=== PATIENT | female | born 1980 | race Caucasian/White ===

== ENCOUNTER 2018-10-21 12:43 | Inpatient (IN) ==
[2018-10-21] MEDS ORDERED: ZOFRAN IV ONE (12:58)
[2018-10-21] MEDS ORDERED: NS 1,000 ML IV ONE (12:58)
--- NOTE | 2018-10-21 13:23 | PROVIDER DOCUMENTATION ---
This chart was entered by Melina Norman Scribe, acting as scribe for Eunice Walters CRNP. HPI-General Adult - General Chief Complaint: Abdominal Pain Stated Complaint: ABD PAIN,UTI,EAR PAIN Time Seen by Provider: 10/21/18 12:48 Source: patient Allergies/Adverse Reactions: Patient Allergies Allergy/AdvReac Type Severity Reaction Status Date / Time Penicillins Allergy HIVES Verified 10/21/18 13:30 Home Medications: Home Medication List Medication Instructions Recorded Confirmed Last Taken Type Ciprofloxacin HCl [Cipro] 500 mg PO BID 10/21/18 10/21/18 Unknown History Metronidazole 500 mg PO BID 10/21/18 10/21/18 Unknown History Montelukast Sodium [Singulair] 10 mg PO DAILY 10/21/18 10/21/18 Unknown History Omeprazole 40 mg PO DAILY 10/21/18 10/21/18 Unknown History Paroxetine HCl [Paxil] 40 mg PO DAILY 10/21/18 10/21/18 Unknown History Trazodone HCl 150 mg PO HS 10/21/18 10/21/18 Unknown History - History of Present Illness -Gen Adult Nature of Presenting Problems: 38 y/o female presents to ED with low abdominal pain and nausea onset 3 days ago. Pt reports she was seen at urgent care on Friday, treated with cipro and flagyl, and told to take a stool softener. Pt states her last bowel movement was 3 days ago. Pt is alert and oriented. Location of Pain/Injury: reports: abdomen Pain Radiation: reports: no radiation Quality of Pain: reports: aching Severity: reports: moderate Onset/Duration: reports: 3 days ago Timing: reports: still present Context/Activities at Onset: reports: none Modifying Factors: worse with: palpation Associated Symptoms: reports: constipation, nausea, other (low abdominal pain) Similar Symptoms Previously?: No Recently seen or treated by another doctor?: Yes Review of Systems - Adult - REVIEW OF SYSTEMS - ADULT Constitutional: denies: chills, fever Eyes: reports: no symptoms reported Ears, Nose, Mouth & Throat: reports: no symptoms reported Cardiovascular: denies: chest pain, palpitations Respiratory: denies: cough, shortness of breath Gastrointestinal: reports: abdominal pain, constipation. denies: diarrhea, nausea, vomiting Genitourinary: reports: no symptoms reported Musculoskeletal: denies: back pain, joint pain Integumentary: reports: no symptoms reported Neurological: denies: dizziness/vertigo, seizure Psychiatric: reports: no symptoms reported Endocrine: reports: no symptoms reported Hematologic/Lymphatic: reports: no symptoms reported Allergic/Immunologic: reports: no symptoms reported All Other Systems: Reviewed and Negative Past History - Adult - PAST MEDICAL HISTORY-ADULT Review of Records: reports: Old Records Reviewed, Nursing Assessment Review, Medications Reviewed Major Childhood Illnesses: reports: denies history - PRIOR SURGERIES/PROCEDURES Surgical/Procedure History: reports: none - IMMUNIZATION STATUS Childhood Immunizations: See Nurse Assessment Flu Vaccine: See Nurse Assessment - FAMILY HISTORY Family History: reviewed, not pertinent - SOCIAL HISTORY Smoking: non-smoker Substance Use: none/never Alcohol Use Frequency: never Living Situation: family Physical Exam-General - PHYSICAL EXAM-ADULT Initial Vital Signs Reviewed: Yes - CONSTITUTIONAL General Appearance: appears well, alert, no apparent distress, obese - EYES Eyes: PERRL/EOMI, pink conjunctivae - HEAD, EARS, NOSE, MOUTH & THROAT HENMT: normocephalic/atraumatic, moist mucous membranes, normal ENT inspection - NECK Neck: non-tender, full range of motion - RESPIRATORY Respiratory: chest non-tender, lungs clear, normal breath sounds - CARDIOVASCULAR Cardiovascular: normal peripheral pulses, regular rate, rhythm - GASTROINTESTINAL (ABDOMEN) Abdominal Exam: soft, abnormal bowel sounds (hypoactive), tenderness (diffuse). negative: normal bowel sounds - MUSCULOSKELETAL Back Exam: normal inspection, no CVA tenderness, no vertebral tenderness Extremity: normal range of motion, non-tender, normal gait - SKIN Integumentary: normal color, diaphoresis - NEUROLOGIC Neurologic: grossly normal - PSYCHIATRIC Psych/Mental Status: normal mood/affect, normal thought content, normal thought process, oriented x 3 Progress - PLAN OF CARE/RESULTS Progress/Plan/Lab Results: Vital Signs - 8 hr 10/21/18 12:45 Temperature 98.1 F Pulse Rate 109 H Respiratory Rate 20 Blood Pressure 160/93 O2 Sat by Pulse Oximetry 97 Orders Category Date Time Status ED: Urine Bedside ORDERED Care 10/21/18 12:57 Active Saline Loc NOW Care 10/21/18 12:57 Active AMYLASE [CHEM] Stat Lab 10/21/18 12:57 Uncollected CBC WITH ELECTRONIC DIFF [HEME] Stat Lab 10/21/18 12:57 Uncollected CK PROFILE [SP CHEM] Stat Lab 10/21/18 12:57 Uncollected COMPREHENSIVE METABOLIC PANEL [CHEM] Stat Lab 10/21/18 12:57 Uncollected LIPASE [CHEM] Stat Lab 10/21/18 12:57 Uncollected URINALYSIS W/POSS RFLX CULT [URINALYSIS] Stat Lab 10/21/18 12:58 Uncollected 0.9% Sodium Chloride Inj [Ns] 1,000 ml Med 10/21/18 12:58 Active IV 999 mls/hr Ondansetron [Zofran] Med 10/21/18 12:58 Once 4 mg IV NOW ONE Laboratory Tests 10/21/18 10/21/18 10/21/18 12:55 13:00 13:00 WBC 22.17 H RBC 5.03 Hgb 14.5 Hct 42.9 MCV 85.3 MCH 28.8 MCHC 33.8 RDW Std Deviation 13.7 Plt Count 472 H MPV 9.0 Immature Gran % (Auto) 0.4 Neut % (Auto) 84.9 H Lymph % (Auto) 9.7 L Starke % (Auto) 4.7 Eos % (Auto) 0.2 Baso % (Auto) 0.1 Immature Gran # (Auto) 0.08 H Neut # (Auto) 18.84 H Lymph # (Auto) 2.15 Starke # (Auto) 1.04 H Eos # (Auto) 0.04 Baso # (Auto) 0.02 Sodium 137 Potassium 3.6 Chloride 101 Carbon Dioxide 21 L Anion Gap 15 BUN 8 Creatinine 0.7 Estimated GFR/1.73 m2 > 60 BUN/Creatinine Ratio 11 Glucose 126 H Calculated Osmolality 274 Calcium 9.0 Total Bilirubin 0.68 AST 8 L ALT 13 Alkaline Phosphatase 80 Creatine Kinase 49 Total Protein 7.5 Albumin 4.2 Globulin 3.3 Albumin/Globulin Ratio 1.3 Amylase 38 Lipase 14 Plasma Lactate Urine Source CLEAN CATCH Urine Color ORANGE Urine Turbidity HAZY Urine pH 6.0 Ur Specific [place] 1.037 Urine Protein 100 A Ur Glucose (Stick) TRACE Ur Ketones (Stick) 10 A Urine Blood SMALL A Urine Nitrite NEGATIVE Urine Bilirubin NEGATIVE Urobilinogen Dipstick 2 A Urine Leukocytes SMALL A Urine WBC (Auto) 20-40 A Urine RBC (Auto) <10 U Epithel Cells (Auto) <10 Urine Bacteria (Auto) 2+ 10/21/18 13:05 WBC RBC Hgb Hct MCV MCH MCHC RDW Std Deviation Plt Count MPV Immature Gran % (Auto) Neut % (Auto) Lymph % (Auto) Starke % (Auto) Eos % (Auto) Baso % (Auto) Immature Gran # (Auto) Neut # (Auto) Lymph # (Auto) Starke # (Auto) Eos # (Auto) Baso # (Auto) Sodium Potassium Chloride Carbon Dioxide Anion Gap BUN Creatinine Estimated GFR/1.73 m2 BUN/Creatinine Ratio Glucose Calculated Osmolality Calcium Total Bilirubin AST ALT Alkaline Phosphatase Creatine Kinase Total Protein Albumin Globulin Albumin/Globulin Ratio Amylase Lipase Plasma Lactate 1.7 Urine Source Urine Color Urine Turbidity Urine pH Ur Specific [place] Urine Protein Ur Glucose (Stick) Ur Ketones (Stick) Urine Blood Urine Nitrite Urine Bilirubin Urobilinogen Dipstick Urine Leukocytes Urine WBC (Auto) Urine RBC (Auto) U Epithel Cells (Auto) Urine Bacteria (Auto) Dr. Benz paged at [phone]. Discussed results and plan of care with patient. Patient agrees with plan and verbalizes understanding. Result Diagrams: 10/21/18 13:00 10/21/18 13:00 - CT/MRI 1 CT Study: Abdomen ([facility] - [address] [place] [address] [place], [place] [id number] [place] [address] [address] [place] [address] Department of Imaging Patient: NAYLA WALTON Date: 10/21/18#: [id number] : 1980ADM Status: REG [facility]#: [id number] Age/Sex: 38/FRoom/Bed: Loc: ED Ordering Physician: Euncie Walters Family Physician: Belgica Flaherty MD Reason for Procedure: diffuse abd pain/Hx divericulitis Signed EXAM: CT ABD/PELVIS W/IV CONT ONLY 10/21/2018 HISTORY: diffuse abd pain/Hx divericulitis TECHNIQUE: This exam was performed using automated exposure control, adjustment of mA or kV according to patient size, and/or use of iterative reconstruction technique. COMMENT: There is no evidence of acute disease in the visualized portion of the chest. There is apparent hyperplasia of the adrenal glands bilaterally. The spleen is normal in appearance. The liver is unremarkable. The kidneys are without evidence of hydronephrosis or mass. The pancreas is unremarkable. There is no evidence of bowel obstruction or significant adenopathy. The aorta is not distended. Pelvis: The appendix is normal in appearance. There is abnormal stranding around the distal sigmoid colon. There is an apparent foreign body which is of calcific density measuring 4.7 cm in length in this segment of the sigmoid colon and there may be perforation of the posterior wall of the sigmoid colon in this location. There is no discrete abscess identifiable. There is some apparent extraluminal gas on the right lateral aspect. The urinary bladder is not distended. There is a 3.3 cm left ovarian cyst. There is what appears to be a bone island in the proximal left femur. There is no evidence of acute bony abnormality. IMPRESSION: Possible perforation of the distal sigmoid colon by foreign body versus diverticulitis. The findings were discussed with JUHI Valdovinos at 10/21/2018 3:31 PM. Electronically signed by Adebayo Claudio 10/21/2018 3:31 PM 10/21/18 1531 Interpreting Physician: Adebayo Claudio MD Dictated Date/Time: 10/21/18 1524 cc: Eunice Walters; Belgica Flaherty MD), Pelvis Impression: See EMR Report CT Results: See note - CONSULTS/PCP/HOSPITALIST Notification #1 *Consult/PCP/Hospitalist*: Dr. Benz Time Discussed: 16:03 Reason/Comments: Consult Consult Disposition: Admit (Admit to [facility] and he will see her) #2 Consult: Dr. Flaherty Time Discussed: 16:03 Reason/Comments: Admission Consult Disposition: Admit Departure - Departure Date of Disposition Decision: 10/21/18 Time of Disposition Decision: 16:03 DIAGNOSIS: Perforated sigmoid colon Disposition: HOME 01 Certified Medical Emergency: Emergent Condition: Stable Referrals and Follow-Ups: Belgica Flaherty MD [Primary Care Provider] - - Critical Care Note This patient required my direct & personal management of CC.: Yes Total Time (mins): 35 Critical Care Statement: This patient required my direct personal management to treat or rule out processes, the absence of which, could potentiallly result in sudden, clinically significant life or limb threatening deterioration. Attestation - Physician/ ELBERT Attestation Patient care was provided by Advanced Practice Provider:: Yes Advanced Practice Provider:: Eunice Walters Advanced Practice Provider documentation review:: The Mid-level provider documentation, treatment plan and medical decision making was reviewed by the physician who agrees with all treatment and medical decision making by the MLP. The physician spent face to face time with patient:: No Advanced Practice Provider documentation review:: Supervising physician onsite and consulted in the evaluation and care of this patient. The physician did not have a face to face encounter with the patient. This chart was documented by the indicated scribe, (Melina Norman Scribe) and accurately reflects the services I performed and decisions made by me, Eunice Walters CRNP, as attested by the provider's signature.
[2018-10-21 13:26] LABS: URINE SOURCE CLEAN CATCH
[2018-10-21 13:30] LABS: BASO# 0.02 X1000 (0.0-0.2); BASO% 0.1 % (0.0-0.8); EOS# 0.04 X1000 (0.0-0.7); EOS% 0.2 % (0.0-10.0); HEMATOCRIT 42.9 % (37.0-47.0); HEMOGLOBIN 14.5 g/dL (12.0-16.0); IMM GRAN# 0.08 X1000 (0.0-0.04); IMM GRAN% 0.4 % (0.0-0.5); LYMPH# 2.15 X1000 (1.2-3.4); LYMPH% 9.7 % (20.5-51.1); MCH 28.8 PG (27-31); MCHC 33.8 g/dL (33-37); MCV 85.3 FL (81-99); MONO# 1.04 X1000 (0.11-0.59); MONO% 4.7 % (1.7-9.3); NEUT# 18.84 X1000 (1.4-6.5); NEUT% 84.9 % (42.2-75.2); PLT 472 X1000 (130-400); RBC 5.03 XMIL (4.2-5.4); RDW 13.7 % (11.5-14.5); WBC 22.17 X1000 (4.8-10.8)
[2018-10-21 13:34] LABS: BILIRUBIN URINE NEGATIVE (NEGATIVE); BLOOD URINE SMALL (NEGATIVE); COLOR ORANGE; GLUCOSE URINE TRACE mg/dL (NEGATIVE); KETONE URINE 10 mg/dL (NEGATIVE); LEUKOCYTES URINE SMALL (NEGATIVE); NITRITE URINE NEGATIVE (NEGATIVE); PROTEIN URINE 100 mg/dL (NEGATIVE); SP GRAVITY URINE 1.037; TURBIDITY URINE HAZY (CLEAR); UR EPITHELIAL CELLS <10 /HPF (<10); URINE BACTERIA 2+ /HPF; URINE RBC <10 /HPF (<10); URINE WBC 20-40 /HPF (<10); UROBILINOGEN URINE 2 mg/dL (NORMAL)
[2018-10-21 13:53] LABS: AGAP 15; ALB/GLOB RATIO 1.3; ALBUMIN 4.2 g/dL (3.5-5.0); ALKALINE PHOSPHATASE 80 U/L (32-104); BUN 8 mg/dL (8-22); CHLORIDE 101 mmol/L (98-107); COSMO 274; CREATININE 0.7 mg/dL (0.5-0.9); ESTIMATED GFR > 60; GLUCOSE 126 mg/dL (70-104); GOT 8 U/L (10-30); GPT 13 U/L (10-36); POTASSIUM 3.6 mmol/L (3.5-5.1); SODIUM 137 mmol/L (136-145); TCO2 21 mmol/L (25-35); TOTAL BILIRUBIN 0.68 mg/dL (0.20-1.00); TOTAL PROTEIN 7.5 g/dL (6.3-8.3)
[2018-10-21 13:54] LABS: AMYLASE 38 U/L (20-200); CK PROFILE 49 U/L (24-173); LIPASE 14 U/L (13-60)
--- NOTE | 2018-10-21 15:33 | Diag Imaging Result Doc PS360 ---
EXAM: CT ABD/PELVIS W/IV CONT ONLY 10/21/2018 HISTORY: diffuse abd pain/Hx divericulitis TECHNIQUE: This exam was performed using automated exposure control, adjustment of mA or kV according to patient size, and/or use of iterative reconstruction technique. COMMENT: There is no evidence of acute disease in the visualized portion of the chest. There is apparent hyperplasia of the adrenal glands bilaterally. The spleen is normal in appearance. The liver is unremarkable. The kidneys are without evidence of hydronephrosis or mass. The pancreas is unremarkable. There is no evidence of bowel obstruction or significant adenopathy. The aorta is not distended. Pelvis: The appendix is normal in appearance. There is abnormal stranding around the distal sigmoid colon. There is an apparent foreign body which is of calcific density measuring 4.7 cm in length in this segment of the sigmoid colon and there may be perforation of the posterior wall of the sigmoid colon in this location. There is no discrete abscess identifiable. There is some apparent extraluminal gas on the right lateral aspect. The urinary bladder is not distended. There is a 3.3 cm left ovarian cyst. There is what appears to be a bone island in the proximal left femur. There is no evidence of acute bony abnormality. IMPRESSION: Possible perforation of the distal sigmoid colon by foreign body versus diverticulitis. The findings were discussed with JUHI Valdovinos at 10/21/2018 3:31 PM. Electronically signed by Adebayo Claudio 10/21/2018 3:31 PM
[2018-10-21] MEDS ORDERED: ZOSYN 3.375 GM in NS 50 ML IV ONE (15:49)
[2018-10-21] MEDS: ZOFRAN IV PRN (16:29)
[2018-10-21] MEDS ORDERED: NEXIUM IV SCH (19:00)
[2018-10-21] MEDS ORDERED: SODIUM CHLORIDE 0.9% INJ SCH (19:00)
[2018-10-21] MEDS: SODIUM CHLORIDE 0.9% INJ SCH (19:52)
[2018-10-21] MEDS: PROTONIX IV SCH (19:52)
[2018-10-21] MEDS: MAXIPIME 1 GM in NS 50 ML IV SCH (19:52)
[2018-10-21] MEDS: NS 1,000 ML IV SCH (19:59)
--- NOTE | 2018-10-21 20:10 | CONSULTATION ---
DATE OF CONSULTATION: 10/21/2018 HISTORY OF PRESENT ILLNESS: Ms Bertha Trinh is a 38-year-old white female patient of Dr. Eneida Flaherty. This weekend she began experiencing lower abdominal cramping and pain. She has not had a normal bowel movement in 3 days. She did go to urgent care. She was placed on p.o. antibiotics for diverticulitis but presented to the emergency department today because her pain has not improved. Part of her evaluation in our emergency department was a CT scan of her abdomen and pelvis which suggested a foreign body in her sigmoid and also inflammation around the sigmoid colon. There was a question whether this foreign body had perforated or whether she had diverticulitis. There was no abscess. We were asked to evaluate her. PAST MEDICAL HISTORY: She smokes a pack of cigarettes a day. MEDICATIONS: She takes Singulair. She takes trazodone for sleep. She has recently been on Cipro and Flagyl for diverticulitis. ALLERGIES: No known drug allergies. SOCIAL HISTORY: She works at the health department. Her was at the bedside. She lives here in [place]. REVIEW OF SYSTEMS: She has not had a normal bowel movement in 3 days. She has passed some mucus. I think she has had an episode of diverticulitis in the past. She does not recall eating anything with a large bone. Actually, she had hamburgers over the weekend. She has no idea what this foreign body which appears to be calcified could be in her sigmoid colon. Before getting sick, she was very active. PHYSICAL EXAMINATION: General: Ms. Trinh is overweight. She is in no acute distress. HEENT: She had no jaundice, no oral lesions. Satisfactory dentition. Lymphatic: She had no cervical or supraclavicular lymphadenopathy. Cardiovascular: Her heart has a regular rate. Lungs: Clear to auscultation and percussion bilaterally. Abdomen: Soft, but she was tender in the lower abdomen. She has no previous scar. She has no evidence of hernia. She has no costovertebral tenderness. Rectal and vaginal: Exams were not performed. Extremities: She does have palpable peripheral pulses. No peripheral edema. Neurologic: She is alert and oriented x3 and appropriate. LABORATORY DATA: Her white blood cell count is elevated. I reviewed the CT scan with our radiologist, Dr. Claudio. She has inflammation around her mid sigmoid colon. She does have diverticulosis. It appears that she has a foreign body bone density in the sigmoid colon which could have perforated her colon, or she has diverticulitis. She has no abscess and no suggestion of free air. IMPRESSION: Foreign body, sigmoid colon, with surrounding inflammation and possible perforation of sigmoid colon versus diverticulitis. PLAN: She will be admitted and receive IV fluids and hydration and IV antibiotics. We will repeat examine her tomorrow and also get a plain film, and decide whether she needs surgery. I discussed her care with her and her at the bedside in the emergency department. cc: MD Cornell Araujo MD
--- NOTE | 2018-10-21 21:48 | HISTORY AND PHYSICAL ---
CHIEF COMPLAINT: Abdominal pain for 3 days, started on Friday. HISTORY OF PRESENT ILLNESS: She is a 38-year-old, white female, who was initially evaluated at [facility] with abdominal pain, was treating with possible diverticulitis. She was sent home on Cipro, Flagyl, failed to improve, came to the ER. In the ER, CT scan showed some foreign body, 4.7 cm, in the sigmoid colon, and the surrounding area inflamed. It is not clear whether it is related to inflammation around the foreign body or perforated diverticulitis. White cell count is going up. As a result, she was admitted to the hospital, basically sigmoid diverticulitis with foreign body. Dr. Benz was consulted. The patient was started on cefepime, Flagyl, IV fluids, and pain control. Apparently, physical was done in my office, and subsequently, the patient had been referred EGD and colonoscopy, and had done on 08/14/2018. It was done by Dr. Arthur. The findings are as follows: EGD, 2 cm sliding hiatal hernia, a single semi-pedunculated polyp was found in the duodenal bulb, biopsies were done. In the colon, mild colitis in the terminal ileum, 2 small polyps were found in the descending colon. There is a single sessile polyp found in the sigmoid colon 20 cm from the entry site, evidence of diverticulosis, a Schatzki's ring of distal 3rd of esophagus was dilated. As a result, the hospital admission was warranted. PAST MEDICAL HISTORY: Metabolic syndrome, depression with anxiety, hiatal hernia, diverticulosis, duodenal polyp was removed under the care of [facility], tobacco abuse. PAST SURGICAL HISTORY: Tonsillectomy, breast lumpectomy on the right breast in 1993. MEDICATIONS: Prozac 20 mg daily, Prilosec 40 daily, Reglan 10 mg 3 times daily, trazodone 150 daily. ALLERGIES: Penicillin. SOCIAL HISTORY: Working at [employer]. for 18 years with 1 kid. Smoking 1 pack a day for 15 years. No drug abuse, no alcohol abuse. Father of suicide at 67. Mom of brain cancer at 57. 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 1, para 1. control implant by Dr. Holder. REVIEW OF SYSTEMS: HEENT: No headache. No vision problem. No earache. No sore throat. Neck: No goiter. No lymphadenopathy. No bruit. Cardiopulmonary: No chest pain, shortness of breath, PND, orthopnea. Gastrointestinal: Lower abdominal pain, diffuse. No nausea. No bleeding per rectum. Genitourinary: No history of hesitancy, frequency, dysuria. No swelling of legs. No joint pain. Neurologic: No focal symptoms or weakness. PHYSICAL EXAMINATION: Temperature is 98.5 degrees, pulse is 80, blood pressure 130/82, on room air. HEENT: Atraumatic, normocephalic. Pupils equal, reactive to light. NECK: Supple. No lymphadenopathy. No goiter. CHEST: Bilateral air entry. Heart sounds are regular. Belly is soft. Tender diffusely, mostly on the lower abdomen. No guarding, no rigidity. No signs of peritonitis noted. INVESTIGATIONS: White cell count 22, hematocrit 42, platelets 472,000. Sodium 137, potassium 3.6, chloride 101, BUN 8, creatinine 0.7, glucose 126, calcium 9.0. LFTs are normal. Amylase, lipase are normal. Urinalysis, positive for blood. Blood cultures, urine cultures are pending. CT scan of the abdomen and pelvis, sigmoid colitis, possible perforation versus foreign body. ASSESSMENT: A 38-year-old, white female, recently had a colonoscopy by Dr. Arthur on 08/14/2018, with duodenal polyp, hiatal hernia, diverticulosis, and benign polyps removed, with diverticulitis now. Foreign body etiology is not clear. I appreciate Dr. Benz's consult. PLAN: 1. NPO, except ice chips. 2. Intravenous fluids. 3. Control pain with Dilaudid. 4. Continue on Maxipime and metronidazole. IV Zofran for nausea. 5. Gastrointestinal prophylaxis with IV Protonix and Zofran for nausea. 6. Repeat the labs in the morning, follow up on the cultures, and also repeat the flat and upright of the abdomen. We will follow up on the clinical course. cc: Cornell Flaherty MD
[2018-10-21] MEDS: FLAGYL 500 MG/NS 500 MG/100 ML IVPB IV SCH (22:38)
[2018-10-22] MEDS: FLAGYL 500 MG/NS 500 MG/100 ML IVPB IV SCH ×3 (06:10→21:53)
[2018-10-22 07:06] LABS: HEMATOCRIT 38.3 % (37.0-47.0); HEMOGLOBIN 12.5 g/dL (12.0-16.0); MCH 29.1 PG (27-31); MCHC 32.6 g/dL (33-37); MCV 89.1 FL (81-99); MPV 8.7 FL (7.4-10.4); RBC 4.3 XMIL (4.2-5.4); RDW 13.7 % (11.5-14.5); WBC 15.35 X1000 (4.8-10.8)
[2018-10-22 07:09] LABS: AGAP 13; BUN 9 mg/dL (8-22); CALCIUM 8.7 mg/dL (8.8-10.2); CHLORIDE 105 mmol/L (98-107); COSMO 275; CREATININE 0.6 mg/dL (0.5-0.9); ESTIMATED GFR > 60; GLUCOSE 108 mg/dL (70-104); POTASSIUM 3.5 mmol/L (3.5-5.1); SODIUM 138 mmol/L (136-145); TCO2 20 mmol/L (25-35)
[2018-10-22] MEDS: MAXIPIME 1 GM in NS 50 ML IV SCH ×3 (07:39→19:57)
--- NOTE | 2018-10-22 08:58 | Diag Imaging Result Doc PS360 ---
EXAM: ABDOMEN FLAT/UPRIGHT HISTORY: pain TECHNIQUE: Flat and upright, three views COMPARISON: None. FINDINGS: No free air beneath the diaphragm. No bowel obstruction. No organomegaly. Nonspecific mid pelvic calcification. IMPRESSION: No acute abnormality Electronically signed by Placido Cummings 10/22/2018 8:55 AM
[2018-10-22] MEDS: MIRALAX PO SCH ×2 (10:02→21:53)
--- NOTE | 2018-10-22 11:41 | GASTROENTEROLOGY CONSULTATION ---
DATE: 10/22/2018 ATTENDING PHYSICIAN: Dr. Flaherty. PRIMARY PHYSICIAN: Dr. Benz. REASON FOR CONSULTATION: Sigmoid diverticulitis. HISTORY OF PRESENT ILLNESS: Ms. Trinh is a 38-year-old female who was admitted on 10/21/2018 with abdominal pain starting on Friday. The patient has a history of diverticulitis in the past. She has had a history of colon polyps. She had last colonoscopy and EGD done on 08/14/2018, which showed evidence of a 2 cm hiatal hernia, Schatzki's ring which was dilated, a semi-pedunculated polyp in the duodenal bulb which was biopsied, which had some atypia, colon polyps which were resected from descending colon and sigmoid colon, and she had evidence of diverticulosis in the sigmoid colon. Her pathology results showed evidence of: 1. Chronic superficial gastritis without hemorrhage and negative Helicobacter pylori. 2. Ulcerative and crushed duodenal mucosa with few glands showing mild nuclear atypia. No intact tubular adenoma was identified. Followup is recommended. 3. Two crushed hyperplastic polyps in the descending colon. 4. Inflamed and ulcerated hyperplastic polyp in the sigmoid colon. No dysplasia noted. The patient was fine until Friday night, when she started having discomfort in the left lower quadrant. She saw a walk-in clinic on Friday. She was put on Ciprofloxacin and Flagyl. She was told she has a UTI. Despite being on antibiotics, she continued to have symptoms, and she was admitted to the hospital. She had a CT scan done, which showed evidence of sigmoid diverticulitis and possible perforation of the distal sigmoid colon by foreign body versus diverticulitis. On questioning about these findings, the patient told me that she had been to a dentist, and she could have swallowed a dental mold a few days ago, and that is likely what we are seeing on the CT scan. I have spoken to Dr. Flaherty and Dr. Benz, who are on board. PAST MEDICAL HISTORY: Metabolic syndrome, depression, anxiety, hiatal hernia, Schatzki's ring, reflux disease, gastritis, duodenal polyp, tobacco abuse, diverticulosis and history of diverticulitis in the past, constipation, colon polyps, obesity. PAST SURGICAL HISTORY: Tonsillectomy, breast lumpectomy on the right breast in 1993. ALLERGIES: Penicillin. OUTPATIENT MEDICATIONS: Include Prozac 20 mg once a day, Prilosec 40 mg once a day, Reglan 10 mg 3 times daily, trazodone 100 mg p.o. daily. SOCIAL HISTORY: She is working in [employer]. She is for 18 years. She has 1 child. Her is very supportive at the bedside. She smokes 1 pack a day for the last 15 years. No history of alcohol or drug abuse. Father of suicide at age 67. Mother of brain cancer at 57. Her OB doctor is Dr. Holder. REVIEW OF SYSTEMS: Denies any fevers, rigors, chills, chest pain, shortness of breath, dyspnea, nausea, vomiting, passing blood in the stools. She is passing some mucus in the stools. She has not had a bowel movement since Friday. She feels constipated. She denies any fevers, rigors, chills at the moment, although at home yesterday, she was feeling feverish. She denies any major arthritis. Denies any neurologic complaints. MEDICATIONS IN HOSPITAL: Include normal saline at 80 mL/hour, Dilaudid 1 mg IV every 2 hours as needed, cefepime 1 gram every 12 hours, Flagyl 500 mg IV every 8 hours, Zofran 4 mg IV every 4 hours, Protonix 40 mg IV daily, MiraLAX start on 17 grams p.o. b.i.d., Zosyn (she may have gotten 1 dose or it was discontinued from yesterday). She is n.p.o., except medications. PHYSICAL EXAMINATION: Vital Signs: Temperature of 98.6 degrees, pulse of 71, respiratory rate 14, blood pressure 124/90, saturating 92% on room air. Body weight of 233 pounds, BMI of 40.0 kg. General: The patient is obese, lying in bed in no acute distress. HEENT: No pallor. No icterus. Pupils equal, reactive to light. Neck: Supple. Abdomen: Discomfort in the left lower quadrant. No rebound or guarding. Extremities: No cyanosis or clubbing. Neurologic: She is alert, awake, oriented x3. IMAGING AND LABORATORY DATA: Hemoglobin and hematocrit are 12.5 and 38.3, white count of 15.35, platelet count of 388,000. Sodium 130, potassium 3.5, chloride 105, bicarb 29, AG 13, BUN of 9, creatinine 0.6, glucose 108, calcium is 8.7. AST 8, ALT 13, alkaline phosphatase 80, total protein is 7.4, albumin of 4.2. Amylase of 38, lipase of 14. Lactate of 1.7. Urinalysis showing positive protein, positive ketones, small blood, small leukocytes 20 to 40. MICROBIOLOGY: Blood culture is currently pending. Her urine culture is preliminary showing no growth. IMAGING: CT scan of the abdomen and pelvis on 10/21/2018 showed the appendix is normal in appearance. There is abnormal stranding around the distal sigmoid colon. There is an absent foreign body, which is of calcific density measuring 4.7 cm in length. In this segment of the sigmoid colon, there may be a perforation of the posterior wall of the sigmoid colon in this location. There is no discrete abscess identified, although there is some apparent extraluminal gas on the lateral aspect. The urinary bladder is not distended. There is a 3.3 cm left ovarian cyst. This is what appears to be a bone island in the proximal left femur. There was no evidence of any other acute bony abnormality. IMPRESSION AND PLAN: 1. Foreign body in the sigmoid colon, likely causing diverticulitis or colitis with contained perforation, appears to be on the scan on the distal sigmoid colon. Dr. Benz is on board. 2. Obesity. 3. Metabolic syndrome. 4. Reflux disease. 5. History of colon polyps. 6. History of Crohn's disease involving the terminal ileum, which is in remission. 7. Chronic smoker. 8. Hiatal hernia. 9. Duodenal polyp, which is being followed as an outpatient. 10. Leukocytosis and possible urinary tract infection. RECOMMENDATIONS: Will keep her n.p.o., except ice chips and medications. Will keep her on IV fluids, IV pain control, IV antibiotics. She was given IV Zofran for nausea. Will continue on GI prophylaxis with IV Protonix. We will start on MiraLAX twice daily, and will continue to watch her labs. If she is not better with conservative treatment, then she may need to have a sigmoid colectomy. I have spoken with the patient and family at bedside, and all questions were answered. I have also spoken with Dr. Benz by phone, and I have also spoken to Dr. Flaherty by phone. Will be following closely. We will check a KUB in the morning. The above plans were discussed with the patient and family, and all questions were answered. Please call us with any further issues. cc: MD Cornell Suárez MD Lynn R. Buckner, MD MTDD
[2018-10-22] MEDS ORDERED: PREPARATION H OINT TOP PRN (12:51)
[2018-10-22] MEDS: NS 1,000 ML IV SCH (12:54)
--- NOTE | 2018-10-22 17:47 | PROGRESS NOTE ---
DATE: 10/22/2018 Ms Trinh came in with a foreign body in the sigmoid colon and also inflammation at the sigmoid colon. She does have diverticulosis. This may be diverticulitis or it may be perforation related to a foreign body. Clinically, she feels better today on IV antibiotics. Gastroenterology Medicine has seen her. They are going to try to have her pass this by having her move her bowels. We will continue IV antibiotics in hopes that she does not need an urgent colon resection. cc: MD Cornell Araujo MD
[2018-10-22] MEDS: TYLENOL PO PRN (17:53)
--- NOTE | 2018-10-22 21:02 | PROGRESS NOTE ---
DATE: 10/22/2018 SUBJECTIVE: I appreciated consultants. I spoke to Dr. Benz and Dr. Arthur. CT scan reviewed. There is a foreign body in the sigmoid colon. Apparently, patient had some dental procedures and swallowed some type of mold. It will become hardening. She has slightly improved. Pain is better. OBJECTIVE: Vital Signs: Afebrile. Vitals are stable. HEENT: Within normal limits. Neck: Supple. Chest: Bilateral air entry. Heart: Sounds are regular. Abdomen: Belly is soft, nontender. Decreased signs of peritonitis on the left side. Neurologic: No neurological deficits. INVESTIGATIONS: White cell count 15, hematocrit 38, platelets 388,000. Sodium 138, potassium 3.5, BUN 9, creatinine 0.6, glucose 108. Urine cultures are negative. Blood cultures are pending. ASSESSMENT AND PLAN: Sigmoid diverticulitis with foreign body. Appreciated Dr. Arthur. Continue the conservative management with intravenous Flagyl and cefepime and intravenous fluids. Dr. Arthur started some MiraLAX. Patient is passing gas. Pain is adequately controlled. Continue intravenous fluids. Repeat KUB in the morning as well as blood workup. We will hold the surgery and Dr. Benz is agreeable, and will follow up. Discussed the plan of the care with the family. LEVEL OF DOCUMENTATION: 25 minutes. cc: Cornell Flaherty MD
[2018-10-22] MEDS: SODIUM CHLORIDE 0.9% INJ SCH (21:53)
[2018-10-22] MEDS: PROTONIX IV SCH (21:53)
[2018-10-23] MEDS: NS 1,000 ML IV SCH ×2 (01:21→18:29)
[2018-10-23] MEDS: ZOFRAN IV PRN ×2 (01:21→06:24)
[2018-10-23] MEDS: FLAGYL 500 MG/NS 500 MG/100 ML IVPB IV SCH ×3 (05:01→21:54)
[2018-10-23] MEDS: MAXIPIME 1 GM in NS 50 ML IV SCH ×2 (06:19→23:40)
[2018-10-23 06:47] LABS: HEMATOCRIT 35.9 % (37.0-47.0); HEMOGLOBIN 11.8 g/dL (12.0-16.0); MCH 28.9 PG (27-31); MCHC 32.9 g/dL (33-37); MPV 8.8 FL (7.4-10.4); RBC 4.08 XMIL (4.2-5.4); RDW 13.3 % (11.5-14.5); WBC 13.5 X1000 (4.8-10.8)
[2018-10-23 07:13] LABS: AGAP 11; BUN 11 mg/dL (8-22); CALCIUM 8.8 mg/dL (8.8-10.2); CHLORIDE 106 mmol/L (98-107); COSMO 277; CREATININE 0.7 mg/dL (0.5-0.9); ESTIMATED GFR > 60; GLUCOSE 106 mg/dL (70-104); POTASSIUM 3.5 mmol/L (3.5-5.1); SODIUM 139 mmol/L (136-145); TCO2 22 mmol/L (25-35)
--- NOTE | 2018-10-23 08:44 | Diag Imaging Result Doc PS360 ---
EXAM: KUB ABDOMEN HISTORY: evaluate for constipation or obstruction TECHNIQUE: Abdomen two views COMPARISON: 10/22/2018. FINDINGS: No free air beneath the diaphragm. No bowel obstruction. No organomegaly. No foreign body. No abnormal abdominal calcifications. Stable pelvic calcification IMPRESSION: No significant constipation and no bowel obstruction. Electronically signed by Placido Cummings 10/23/2018 8:40 AM
[2018-10-23] MEDS: MIRALAX PO SCH ×2 (09:08→21:54)
--- NOTE | 2018-10-23 09:09 | PROGRESS NOTE ---
DATE: 10/23/2018 SUBJECTIVE: Ms. Bertha Trinh is now hospital day 3. She swallowed a foreign body, something related to dental material, and she has developed inflammation at the sigmoid colon and this dental material is in her mid sigmoid colon. There was question whether it cause perforation or she does has acute sigmoid diverticulitis. She is on clear liquids. She is receiving IV antibiotics. Her white blood cell count has improved daily. She is nauseated this morning but has less crampy abdominal pain. Her heart rate 71, blood pressure 140/67, O2 saturation 100%. She is afebrile. Her white blood cell count is 13.5, hematocrit is 36%. Electrolytes are within normal limits. We are waiting on an abdominal x-ray. PLAN: We will plan to continue conservative treatment at this time. cc: MD Cornell Araujo MD
[2018-10-23] MEDS ORDERED: CALMOSEPTINE OINTMENT TOP PRN (16:50)
[2018-10-23] MEDS: DILAUDID IV PRN (16:58)
[2018-10-23] MEDS: PROTONIX IV SCH (21:56)
[2018-10-23] MEDS: SODIUM CHLORIDE 0.9% INJ SCH (21:56)
--- NOTE | 2018-10-23 22:14 | PROGRESS NOTE ---
DATE: 10/23/2018 SUBJECTIVE: The patient is getting loose bowel movements. No foreign body past yet. Pain is somewhat improved. Still on lipid white. REVIEW OF SYSTEMS: Left lower abdominal pain. OBJECTIVE: Vital signs: Temperature is 98 degrees, pulse is 69, blood pressure is stable. HEENT: Within normal limits. Neck: Supple. No lymphadenopathy. Chest: Bilateral air entry. Heart: Sounds are regular. Abdomen: Belly is soft, nontender. Good bowel sounds. Tenderness in the lower abdominal area. INVESTIGATIONS: White cell count 13, hematocrit 35.9, platelets 389,000. Sodium 139, potassium 3.5, BUN 11, creatinine 0.7. Glucose 106. Blood cultures, urine cultures are negative. KUB, foreign body still in the pelvis. ASSESSMENT AND PLAN: Foreign body in the sigmoid colon with diverticulitis, probably from dental molding swallowed. PLAN OF CARE: 1. Continue IV antibiotics with cefepime and Flagyl. 2. IV fluids. 3. MiraLAX. 4. We will continue to monitor over the weekend. If she will not pass the foreign body, if it does not resolve, then Dr. Benz will operate on Friday. The plan of care discussed with the patient at bedside along with . I appreciate Dr. Benz and Dr. Arthur. LEVEL OF DOCUMENTATION: 25 minutes. cc: Cornell Flaherty MD
--- NOTE | 2018-10-23 22:57 | PROVIDER PROGRESS NOTE ---
Progress Note S: No acute overnight events. Patient reports improving LLQ pain. No N/V/F, tolerating PO. On abx. O: Last Vital Signs Temp 98.1 F 10/23/18 20:33 Pulse 67 10/23/18 20:33 Resp 19 10/23/18 20:33 BP 144/76 10/23/18 20:33 Pulse Ox 98 10/23/18 20:33 Height 5 ft 4 in Weight 233 lb GEN: awake, alert, NAD HEENT: anicteric, MMM NECK: supple, no JVD, LAD CV: RRR, no murmurs PULM: CTAB no wheezing ABD: soft, ND, BS present, TTP LLQ no rebound or guarding EXT: no cce NEURO: nonfocal LABS: 10/23/18 10/23/18 05:45 05:45 WBC 13.50 H Hgb 11.8 L Plt Count 389 Sodium 139 Potassium 3.5 Chloride 106 Carbon Dioxide 22 L BUN 11 Creatinine 0.7 Glucose 106 H MsEdinson Trinh is a 38 year old woman who presented with acute sigmoid diverticulitis vs. foreign body with microperforation. Surgery following. Leukocytosis improved with antibiotics. We are hoping that foreign body will pass with conservative mgmt. If no improvement, the surgical intervention may be warranted next week. Continue serial abdominal exams, trend CBC, and monitoring for change in clinical status. No role for endoscopic evaluation at this time given risk for perforation.
[2018-10-23] MEDS ORDERED: MAXIPIME ONE (23:45)
[2018-10-24] MEDS: ZOFRAN IV PRN ×2 (00:36→16:50)
[2018-10-24] MEDS: DILAUDID IV PRN ×6 (00:36→22:16)
[2018-10-24] MEDS: FLAGYL 500 MG/NS 500 MG/100 ML IVPB IV SCH ×3 (05:33→22:16)
[2018-10-24 05:47] LABS: HEMATOCRIT 35.1 % (37.0-47.0); HEMOGLOBIN 11.3 g/dL (12.0-16.0); MCH 28.8 PG (27-31); MCHC 32.2 g/dL (33-37); MCV 89.5 FL (81-99); MPV 8.5 FL (7.4-10.4); RBC 3.92 XMIL (4.2-5.4); RDW 13.5 % (11.5-14.5); WBC 13.46 X1000 (4.8-10.8)
[2018-10-24 06:21] LABS: AGAP 13; BUN 8 mg/dL (8-22); CALCIUM 8.3 mg/dL (8.8-10.2); CHLORIDE 108 mmol/L (98-107); COSMO 281; CREATININE 0.6 mg/dL (0.5-0.9); ESTIMATED GFR > 60; GLUCOSE 116 mg/dL (70-104); POTASSIUM 3.6 mmol/L (3.5-5.1); SODIUM 141 mmol/L (136-145); TCO2 20 mmol/L (25-35)
[2018-10-24] MEDS: MIRALAX PO SCH ×2 (09:10→22:18)
[2018-10-24] MEDS: NS 1,000 ML IV SCH ×2 (10:49→13:03)
[2018-10-24] MEDS: MAXIPIME 1 GM in NS 50 ML IV SCH ×2 (13:03→23:41)
--- NOTE | 2018-10-24 13:19 | GENERAL SURGERY PROGRESS NOTE ---
DATE: 10/24/2018 Ms. Trinh is about the same, maybe a little less tender. Her hemodynamics are good. She is afebrile. White count is still 13,000. The plan will be to advance her to full liquids and recheck her labs tomorrow. cc: MD Cornell Corbin MD
--- NOTE | 2018-10-24 13:44 | PROGRESS NOTE ---
DATE: 10/24/2018 SUBJECTIVE: Ms Trinh, who is a 38-year-old white female, had sigmoid diverticulitis with perforation. Her vital signs are stable. Abdomen is cracking still operator in the left lower quadrant, which was expected. Her blood and urine cultures are negative. White count of 13.46, hemoglobin 11.3, hematocrit 35.1. Electrolytes are normal. She is on IV cefepime, as well as Flagyl. We are going to continue the current management. -8 cc: MD Cornell Nolan MD
[2018-10-24] MEDS: PROTONIX IV SCH (22:17)
[2018-10-24] MEDS: SODIUM CHLORIDE 0.9% INJ SCH (22:18)
[2018-10-25] MEDS: DILAUDID IV PRN ×5 (03:18→22:51)
[2018-10-25] MEDS: FLAGYL 500 MG/NS 500 MG/100 ML IVPB IV SCH ×3 (07:01→22:51)
[2018-10-25 07:03] LABS: BASO# 0.04 X1000 (0.0-0.2); BASO% 0.3 % (0.0-0.8); EOS# 0.17 X1000 (0.0-0.7); EOS% 1.4 % (0.0-10.0); HEMATOCRIT 36.8 % (37.0-47.0); HEMOGLOBIN 11.7 g/dL (12.0-16.0); LYMPH# 2.44 X1000 (1.2-3.4); MCH 28.9 PG (27-31); MCHC 31.8 g/dL (33-37); MCV 90.9 FL (81-99); MONO# 0.73 X1000 (0.11-0.59); MPV 8.5 FL (7.4-10.4); NEUT# 8.81 X1000 (1.4-6.5); NEUT% 72.3 % (42.2-75.2); PLT 397 X1000 (130-400); RBC 4.05 XMIL (4.2-5.4); RDW 13.6 % (11.5-14.5); WBC 12.19 X1000 (4.8-10.8)
[2018-10-25] MEDS: MIRALAX PO SCH (08:42)
[2018-10-25] MEDS: ZOFRAN IV PRN ×2 (08:43→12:30)
--- NOTE | 2018-10-25 11:39 | PROGRESS NOTE ---
DATE: 10/25/2018 Ms. Trinh is still having some abdominal pain which is gradually decreasing. There is less tenderness. Bowel sounds are present. Her CBC showed white count of 12.19, hemoglobin 11.7, hematocrit 36.7. She is on IV cefepime and Flagyl, which we will continue. -4 cc: MD Cornell Nolan MD
[2018-10-25] MEDS: MAXIPIME 1 GM in NS 50 ML IV SCH (11:58)
[2018-10-25] MEDS: NS 1,000 ML IV SCH (12:55)
[2018-10-25] MEDS: PROTONIX IV SCH (22:51)
[2018-10-25] MEDS: SODIUM CHLORIDE 0.9% INJ SCH (22:51)
[2018-10-26] MEDS: MAXIPIME 1 GM in NS 50 ML IV SCH ×2 (00:15→11:49)
[2018-10-26] MEDS: ZOFRAN IV PRN ×2 (03:35→16:14)
[2018-10-26] MEDS: DILAUDID IV PRN ×4 (03:35→22:44)
[2018-10-26] MEDS: MIRALAX PO SCH ×3 (04:28→20:06)
[2018-10-26] MEDS: FLAGYL 500 MG/NS 500 MG/100 ML IVPB IV SCH ×3 (06:16→22:44)
--- NOTE | 2018-10-26 07:24 | Diag Imaging Result Doc PS360 ---
EXAM: KUB ABDOMEN HISTORY: FB TECHNIQUE: Abdomen two views COMPARISON: 10/23/2018 FINDINGS: No bowel obstruction. No foreign body identified. No organomegaly. There are several pelvic calcifications unchanged. No abnormal abdominal calcifications. IMPRESSION: No foreign body identified. Electronically signed by Placido Cummings 10/26/2018 7:22 AM
[2018-10-26 08:53] LABS: BASO# 0.03 X1000 (0.0-0.2); BASO% 0.3 % (0.0-0.8); EOS# 0.08 X1000 (0.0-0.7); EOS% 0.7 % (0.0-10.0); HEMATOCRIT 34.8 % (37.0-47.0); HEMOGLOBIN 11.7 g/dL (12.0-16.0); IMM GRAN# 0.05 X1000 (0.0-0.04); IMM GRAN% 0.5 % (0.0-0.5); LYMPH# 2.37 X1000 (1.2-3.4); LYMPH% 22.2 % (20.5-51.1); MCH 29.1 PG (27-31); MCHC 33.6 g/dL (33-37); MCV 86.6 FL (81-99); MONO# 0.47 X1000 (0.11-0.59); MONO% 4.4 % (1.7-9.3); MPV 8.6 FL (7.4-10.4); NEUT# 7.68 X1000 (1.4-6.5); NEUT% 71.9 % (42.2-75.2); PLT 413 X1000 (130-400); RBC 4.02 XMIL (4.2-5.4); RDW 13.2 % (11.5-14.5); WBC 10.68 X1000 (4.8-10.8)
[2018-10-26 09:22] LABS: AGAP 11; BUN 4 mg/dL (8-22); CALCIUM 8.8 mg/dL (8.8-10.2); CHLORIDE 107 mmol/L (98-107); COSMO 280; CREATININE 0.7 mg/dL (0.5-0.9); ESTIMATED GFR > 60; GLUCOSE 101 mg/dL (70-104); POTASSIUM 3.2 mmol/L (3.5-5.1); SODIUM 142 mmol/L (136-145); TCO2 24 mmol/L (25-35)
--- NOTE | 2018-10-26 09:39 | PROGRESS NOTE ---
DATE: 10/26/2018 SUBJECTIVE: Ms. Bertha Trinh's white count is now normal. Clinically, she feels better. Plain films suggest that the foreign body is still in her sigmoid. Dr. Arthur, our head of product, is going to do a flexible sigmoidoscopy and see if he can remove it. cc: MD Cornell Araujo MD
--- NOTE | 2018-10-26 11:13 | Diag Imaging Result Doc PS360 ---
CT ABDOMEN/PELVIS W/O CONTRAST - 10/26/2018 INDICATION: foreign body COMPARISON: 10/21/2018 FINDINGS: The lung bases are clear and the heart size is normal. No free air. There is a stable curve radiodensity in the sigmoid colon just above the rectum. This measures about 4.3 cm in length. There is some inflammatory edema around the sigmoid colon in this region. There is a stable simple left ovarian cyst measuring 3.2 cm. No bowel obstruction. No drainable fluid collections. Urinary bladder demonstrates some surrounding inflammation, cystitis cannot be excluded. IMPRESSION: 1. Stable radiodense object in the lower sigmoid colon suggesting an ingested foreign body. 2. Stable inflammatory changes around the lower sigmoid colon which may be either diverticulitis or a result of the foreign body present. 3. Cystitis cannot be excluded. 4. Stable simple left ovarian cyst. This exam was performed using automated exposure control, adjustment of mA or kV according to patient size, and/or use of iterative reconstruction technique Electronically signed by Wayne Lau 10/26/2018 11:11 AM
--- NOTE | 2018-10-26 12:12 | GASTROENTEROLOGY PROGRESS NOTE ---
DATE: 10/26/2018 SUBJECTIVE: Patient is resting in bed. Her family is present at the bedside. The patient has improved. She is moving liquid brown stools. She is eating better. Her abdominal pain has also improved. She is having 3/10 abdominal pain. She denies any nausea or vomiting. She denies any fevers, rigors, or chills. I have spoken to Dr. Flaherty who suggested us doing a flexible sigmoidoscopy with surgery backup and also read the note from Dr. Benz about the possibility of doing a flexible sigmoidoscopy to evaluate for the foreign body. I have discussed in great detail with the patient's family at bedside about the possible options. Right now, the consensus is that we will recheck a CT scan without contrast to evaluate for any foreign body which was last seen on the CAT scan and was questionable on the abdominal x-ray. If the patient has a foreign body in the sigmoid, then we will do a flexible sigmoidoscopy tomorrow to try to retrieve it. The patient and family agrees with that plan so we will order the CT scan today. PHYSICAL EXAMINATION: Vital Signs: Temperature 98.5 degrees, pulse rate of 72, respiratory rate of 18, blood pressure 147/80, saturating 98% room air. Body weight of 233 pounds, BMI of 40.0 kg/m2. General Appearance: Obese, lying in bed, in no acute distress. HEENT: Mild pallor. No icterus. Neck: Supple. Abdomen: Obese. Mild discomfort in the left lower quadrant. No rebound or guarding. Extremities: No cyanosis, clubbing, or edema. Neurologic: Alert, awake, and oriented x3. LABS: Hemoglobin and hematocrit are 11.7 and 34.8, white count of 10.68, platelet count of 413,000. Sodium 142, potassium 3.2, chloride 107, bicarb 24, anion gap 11, BUN of 4, creatinine 0.7, glucose of 101, calcium is 8.8. Blood culture negative after 48 hours. Urine culture showing no growth. IMPRESSION AND PLAN: 1. Acute sigmoid diverticulitis versus foreign body with microperforation in the sigmoid colon. We will check the CT scan without contrast today. Based on that, we will decide if the patient needs a flexible sigmoidoscopy. I discussed the risk of increasing the perforation and requiring emergent surgery in case we do plan to go with flexible sigmoidoscopy. We also discussed the above, all the other risk factors, and risk and benefits of doing flexible sigmoidoscopy with the patient at bedside. All questions were answered. 2. The patient will continue intravenous antibiotics. She is continuing on MiraLAX. 3. Given intravenous fluids and intravenous pain control. She is on cefepime and metronidazole. 4. She was on MiraLAX twice daily for bowel regimen. We will keep her on gastrointestinal prophylaxis with proton pump inhibitors. 5. She is on intravenous Zofran for nausea and vomiting. 6. Further recommendations pending the results of the CT scan and we will go from there. The above was discussed with the patient and family at bedside, and all questions were answered. Please call us with any further questions. cc: MD Cornell Suárez MD Lynn R. Buckner, MD MTDD
[2018-10-26] MEDS ORDERED: GOLYTELY PO ONE (14:00)
[2018-10-26] MEDS: PROTONIX IV SCH (20:05)
[2018-10-26] MEDS: NS 1,000 ML IV SCH ×2 (20:05→22:44)
[2018-10-26] MEDS: SODIUM CHLORIDE 0.9% INJ SCH (20:05)
--- NOTE | 2018-10-26 21:46 | PROGRESS NOTE ---
DATE: 10/26/2018 SUBJECTIVE: The patient is doing better. Events noted. She has not passed a foreign body. KUB showed still radiopaque foreign body noted. OBJECTIVE: Vital signs: Temperature is 98 degrees. Vitals are stable. HEENT Exam: Within normal limits. Neck: Supple. No lymphadenopathy. Chest: Clear. Cardiovascular: Heart sounds are regular. Abdomen: Belly is soft. No signs of peritonitis. Extremities: No edema noted. INVESTIGATIONS: Repeat white cell count 10, hematocrit 34, platelets 413,000. Sodium 142, potassium 3.2. ASSESSMENT AND PLAN: 1. Diverticulitis with foreign body, not able to pass. Clinically is improving with antibiotics. 2. Discussed with Dr. Benz and Dr. Arthur. Plan is we will attempt a flexible sigmoidoscopy to remove the foreign body. 3. Hypokalemia. Replace the potassium. 4. Nurses reported this evening the patient has some prolapse of the uterus with procidentia, and we will workup that issue later on. and planning to do the sigmoidoscopy tomorrow to remove the foreign body. LEVEL OF DOCUMENTATION: 25 minutes. cc: Cornell Flaherty MD MTDD
[2018-10-27] MEDS: MAXIPIME 1 GM in NS 50 ML IV SCH ×3 (00:16→22:50)
[2018-10-27] MEDS: DILAUDID IV PRN ×5 (01:16→23:28)
[2018-10-27] MEDS: POTASSIUM CHLORIDE 20 MEQ/SWI 20 MEQ/100 ML IVPB IV SCH ×2 (01:17→02:57)
[2018-10-27] MEDS: NS 1,000 ML IV SCH (04:54)
[2018-10-27] MEDS ORDERED: XYLOCAINE-MPF 2% ONE ×2 (06:47→12:15)
[2018-10-27] MEDS ORDERED: ZOFRAN ONE (06:47)
[2018-10-27] MEDS ORDERED: ROBINUL ONE ×2 (06:47→14:20)
[2018-10-27] MEDS ORDERED: FENTANYL ONE ×3 (06:47→13:46)
[2018-10-27] MEDS: FLAGYL 500 MG/NS 500 MG/100 ML IVPB IV SCH ×3 (06:48→21:17)
[2018-10-27] MEDS ORDERED: DIPRIVAN 1% ONE ×3 (06:48→12:14)
[2018-10-27] MEDS ORDERED: VERSED ONE ×2 (09:10→12:41)
[2018-10-27] MEDS ORDERED: SODIUM CHLORIDE 0.9% 10 ML ONE ×3 (09:48→12:40)
--- NOTE | 2018-10-27 09:59 | ENDOSCOPY OPERATIVE NOTE ---
[facility] ENDOSCOPY OPERATIVE NOTE , PATIENT: Bertha Trinh ADM DATE: 10/27/2018 MR #: [id number] : 1980 FLEXIBLE SIGMOIDOSCOPY PROCEDURE REPORT PROCEDURE DATE: 10/27/2018 SURGEON: Mumtaz Paige MD STATUS: inpatient STRAPPER: PREOPERATIVE DIAGNOSIS: The patient is a 38 yr old female here for a colonoscopy due to foreign body , diverticulitis. PROCEDURE PERFORMED: Sigmoidoscopy, diagnostic MEDICATIONS: Per Anesthesia PREP TYPE: GoLytely PREP QUALITY: The overall prep quality was adequate. ESTIMATED BLOOD LOSS: None CONSENT: The patient understands the risks and benefits of the procedure and understands that these r isks include, but are not limited to: sedation, allergic reaction, infection, perforation and/or bleeding. Alternative means of evaluation and treatment include, among others: physical exam, x-rays, and/or surgical intervention. The patient elects to proceed with this endoscopic procedure. HISTORY AND PHYSICAL: 10/27/2018 proper function. Hand hygiene and appropriate measures for infection prevention was taken. After the risks, benefits and alternatives of the procedure were thoroughly explained, Informed consent was verified, confirmed and timeout was successfully executed by the treatment team. A digital exam revealed no abnormalities of the rectum. The [id number] ([id number]) and [id number] ([id number]) endoscope was introduced through the anus and advanced to the sigmo id colon and to 25cm from anal verge. The instrument was then slowly withdrawn as the colon was fully examined. COLON FINDINGS: There was a short 10mm long ulcerated stricture, with an inner diameter of 7mm, locat ed 25 cm from the point of entry, which could not be traversed with adult or pediatric colonoscope. There was severel y imflamed and ulcerated mucosa was seen proximal to stricture. The site of stricture was tattooed with 3 mL of Spo t prior to completing procedure. Retroflexion was not performed. The scope was then completely withdrawn from th e patient and the procedure terminated. The distal sigmoid and rectum were normal. SPECIMENS REMOVED: No ADVERSE EVENTS: There were no complications. POSTOPERATIVE DIAGNOSIS: COLON FINDINGS: There was a short 10mm long ulcerated stricture, with an inner diameter of 7mm, locat ed 25 cm from the point of entry, which could not be traversed with adult or pediatric colonoscope. There was severel y imflamed and ulcerated mucosa was seen proximal to stricture. The site of stricture was tattooed with 3 mL of Spo t prior to completing procedure. RECOMMENDATIONS: Keep NPO Recommend surgical intervention to remove foreign body and strictured colon. Continue antibiotics Discussed plan with Dr. Benz, patient, and family RECALL: Mumtaz Paige MD eSigned: Mumtaz Paige MD 10/27/2018 9:58 AM cc: PATIENT NAME: Bertha Trinh MR#: [id number]
[2018-10-27] MEDS: MIRALAX PO SCH (10:27)
[2018-10-27] MEDS ORDERED: NORCURON ONE (12:15)
[2018-10-27] MEDS ORDERED: QUELICIN (DOSE) ONE (12:15)
[2018-10-27] MEDS ORDERED: MARCAINE 0.25% ONE (12:40)
[2018-10-27] MEDS ORDERED: EXPAREL 1.3% ONE (12:41)
[2018-10-27 14:16] LABS: URINE SOURCE CATH
[2018-10-27] MEDS ORDERED: NEOSTIGMINE ONE (14:21)
[2018-10-27 14:22] LABS: BILIRUBIN URINE NEGATIVE (NEGATIVE); BLOOD URINE NEGATIVE (NEGATIVE); COLOR YELLOW; GLUCOSE URINE NEGATIVE (NEGATIVE); KETONE URINE 10 mg/dL (NEGATIVE); LEUKOCYTES URINE NEGATIVE (NEGATIVE); NITRITE URINE NEGATIVE (NEGATIVE); PROTEIN URINE NEGATIVE (NEGATIVE); SP GRAVITY URINE 1.007; TURBIDITY URINE CLEAR (CLEAR); UROBILINOGEN URINE NORMAL (NORMAL)
[2018-10-27 14:24] LABS: UR EPITHELIAL CELLS <10 /HPF (<10); URINE BACTERIA NEGATIVE /HPF; URINE RBC <10 /HPF (<10); URINE WBC <10 /HPF (<10)
[2018-10-27] MEDS ORDERED: TORADOL ONE (15:03)
--- NOTE | 2018-10-27 15:18 | OPERATIVE NOTE ---
PROCEDURE DATE: 10/27/2018 PREOPERATIVE DIAGNOSIS: Foreign body perforation of the sigmoid colon causing surrounding inflammation and infection. POSTOPERATIVE DIAGNOSIS: Foreign body perforation of the sigmoid colon causing surrounding inflammation and infection. PRINCIPAL PROCEDURE: Open sigmoid colectomy. SURGEON: Korin Benz MD TAPE CALENDER: Nabil Vasquez MD ANESTHESIA: General. ESTIMATED BLOOD LOSS: 100 mL. DRAINS: None. INDICATIONS: Bertha Trinh is an overweight 38-year-old white female who recently was getting some dental work and felt that she choked and swallowed some of the material used for moulding her teeth. About 3 weeks later, she began experiencing lower abdominal pain. A CT scan was performed and showed inflammation around the sigmoid colon and this foreign body. Initially, she was admitted and given IV antibiotics, and we worked to try to have her pass this foreign body, and hopefully her inflammation would subside with the IV antibiotics. However, she was not able to pass this foreign body, and she continued to have symptoms despite days of IV antibiotics. Resection was recommended. FINDINGS: Her distal sigmoid colon was thickened and inflamed and had evidence of a perforation which was contained. This loop of sigmoid colon rested on the anterior wall of the midrectum deep in the pelvis. Her sigmoid colon seemed to be involved with thickening and inflammation, and the descending colon appeared to be normal. The lumen of her bowel was small. We used a 28 mm stapler ultimately. Her ovaries were large and her uterus was still present. A preoperative exam suggested a rectocele. DESCRIPTION OF PROCEDURE: The patient was brought to the operating room, placed supine, received general anesthesia, and was intubated. A TAP block was performed by Anesthesia using ultrasound. She was placed in stirrups. Rowland catheter tube was placed. She had already been on IV antibiotics. Her abdomen was prepped and draped in a sterile field. I used an Ioban on the skin. I made a lower midline incision with the #10 blade scalpel, and this incision was carried down through her subcutaneous tissue to her midline fascia which was incised using the cautery and her abdomen carefully entered. We used a wound protector at this point. We placed her in Trendelenburg and I packed the omentum, small bowel, and cecum out of the way. I began the procedure by mobilizing the proximal sigmoid colon by incising the peritoneum laterally and then I was able to get my hand deep in the pelvis and mobilize up the most sick part of the sigmoid colon which was distally and it was attached to the anterior wall of the rectum. That was brought up into our wound. I was able to choose an area of proximal rectum to come across with TA 45 blue load stapler. I used the LigaSure to come across the mesentery until I got to the sigmoid branches which I controlled using Stacy clamps and 2-0 suture ligatures. I used a pursestring suture to come across the descending colon where it was non-diseased and I cut through the proximal sigmoid with Correa scissors. The specimen was removed from the field. I used a 28 mm anvil in the descending colon and I tied the pursestring around it. I clean the fat off this anvil. I also took some time to clean the underside of the rectal stump. At this point, Dr. Vasquez came in and placed a 28 mm EEA blue load stapler through the rectum to the end of the rectal stump under my direction. I mated the descending colon to the proximal rectum and an EEA stapled anastomosis was performed. Our donuts were intact. Air was pushed against our anastomosis, and there was no evidence of air leak. We thoroughly irrigated out the pelvis. We felt we had no tension on the anastomosis and it was satisfactory without leak. No additional sutures were placed. I placed the bowel back in the anatomically correct position. I placed the greater omentum over the bowel superficially and we closed this midline incision in layers. The first layer was a running 0 Vicryl stitch to close the peritoneum and then the midline fascia was closed with a running #1 Maxon stitch. Again, we irrigated the wound and the skin was closed with a skin clip envelope sealer operator. A dry dressing was applied. Plans are to leave her Rowland catheter tube in place. We did not use an NG tube. She will go the recovery room and then return to the floor. It must be noted that Dr. PRATIK Vasquez was my bankruptcy legal assistant. His assistance was necessary to perform this EEA stapled anastomosis. cc: MD Cornell Araujo MD
[2018-10-27] MEDS: DILAUDID ONE ×4 (15:25→15:36)
[2018-10-27] MEDS ORDERED: DEMEROL ONE (15:41)
[2018-10-27] MEDS ORDERED: PHENERGAN ONE (16:18)
[2018-10-27] MEDS: MORPHINE IV PRN (18:42)
[2018-10-27] MEDS: OFIRMEV 1000 MG/ISOTONIC SOLN 1,000 MG/100 ML BOTTLE IV SCH (20:03)
[2018-10-27] MEDS: PROTONIX IV SCH (20:03)
[2018-10-27] MEDS: SODIUM CHLORIDE 0.9% INJ SCH (20:03)
[2018-10-27] MEDS: LR 1,000 ML IV SCH (20:04)
[2018-10-27] MEDS ORDERED: TORADOL IV SCH (21:00)
[2018-10-27] MEDS: TORADOL IV SCH (21:16)
--- NOTE | 2018-10-27 22:20 | PROGRESS NOTE ---
DATE: 10/27/2018 SUBJECTIVE: Interval history was reviewed. The patient had attempted sigmoidoscopy to remove the ingested foreign body. Unable to pass the pediatric scope due to a lot of inflammation and scarring. As a result, the procedure was aborted. She also has some bleeding per vagina with the procidentia as per the nurses. The pain is better and in the meantime Dr. Benz did the resection of the sigmoid, followed by end-to-end anastomosis with the help of Dr. Vasquez. Postoperatively, patient is in a lot of pain. OBJECTIVE: Vital: Stable. HEENT Exam: Within normal limits. Neck: Supple. Chest: Clear. Cardiovascular: Heart sounds are regular. Abdomen: Belly is soft and nontender. Midline bandages applied. Extremities: No peripheral edema or cyanosis. Neurological: No obvious neurological deficits. INVESTIGATIONS: None reported. ASSESSMENT: 1. Postoperative day 1 failed to remove the foreign body with a sigmoidoscopy. 2. Sigmoid resection and end-to-end anastomosis. PLAN: 1. Incentive spirometry. 2. Antithrombotic stockings. 3. Continue IV antibiotics with cefepime and Flagyl. 4. Pain control with Dilaudid. 5. We will check the labs in the morning. 6. is at bedside. Appreciated all the consultants, and we will continue to monitor. LEVEL OF DOCUMENTATION: 25 minutes. cc: Cornell Flaherty MD
[2018-10-28] MEDS: MIRALAX PO SCH ×2 (01:37→08:28)
[2018-10-28] MEDS: PERIDEX MT SCH ×3 (01:38→21:00)
[2018-10-28] MEDS: DILAUDID IV PRN ×3 (01:57→06:22)
[2018-10-28] MEDS: OFIRMEV 1000 MG/ISOTONIC SOLN 1,000 MG/100 ML BOTTLE IV SCH ×2 (01:57→08:28)
[2018-10-28] MEDS: TORADOL IV SCH ×4 (02:48→20:56)
[2018-10-28 05:56] LABS: AGAP 11; ALB/GLOB RATIO 1.3; ALBUMIN 3.3 g/dL (3.5-5.0); ALKALINE PHOSPHATASE 55 U/L (32-104); BUN 4 mg/dL (8-22); CALCIUM 8.7 mg/dL (8.8-10.2); CHLORIDE 102 mmol/L (98-107); COSMO 275; CREATININE 0.6 mg/dL (0.5-0.9); ESTIMATED GFR > 60; GLUCOSE 109 mg/dL (70-104); GOT 16 U/L (10-30); GPT 23 U/L (10-36); POTASSIUM 3.6 mmol/L (3.5-5.1); SODIUM 139 mmol/L (136-145); TCO2 26 mmol/L (25-35); TOTAL PROTEIN 5.8 g/dL (6.3-8.3)
[2018-10-28 05:58] LABS: CK PROFILE 222 U/L (24-173)
[2018-10-28 06:12] LABS: CK INDEX 1.2 (0.0-2.5); CK-MB 2.56 ng/mL (0.0-5.0)
[2018-10-28] MEDS: LR 1,000 ML IV SCH ×2 (06:21→07:22)
[2018-10-28] MEDS: FLAGYL 500 MG/NS 500 MG/100 ML IVPB IV SCH ×3 (06:22→20:56)
--- NOTE | 2018-10-28 10:18 | PROVIDER PROGRESS NOTE ---
Progress Note S: No acute overnight events. Afebrile. Abdominal pain controlled. No flatus, N/V, BM. O: Last Vital Signs Temp 98.6 F 10/28/18 08:20 Pulse 72 10/28/18 08:20 Resp 18 10/28/18 08:20 BP 152/81 10/28/18 08:20 Pulse Ox 99 10/28/18 08:20 Height 5 ft 4 in Weight 233 lb GEN: awake, alert, NAD HEENT: anicteric, MMM NECK: supple PULM: CTAB no wheezing CV: RRR, no murmurs ABD: obese, soft, midline incision with dressing C/D/I, hypoactive BS, minimal TTP EXT: no cce NEURO: nonfocal LABS: 10/28/18 05:14 Sodium 139 Potassium 3.6 Chloride 102 Carbon Dioxide 26 Anion Gap 11 BUN 4 L Creatinine 0.6 10/27/2018 Open sigmoid colectomy. POSTOPERATIVE DIAGNOSIS: Foreign body perforation of the sigmoid colon causing surrounding inflammation and infection. FINDINGS: Her distal sigmoid colon was thickened and inflamed and had evidence of a perforation which was contained. This loop of sigmoid colon rested on the anterior wall of the midrectum deep in the pelvis. Her sigmoid colon seemed to be involved with thickening and inflammation, and the descending colon appeared to be normal. The lumen of her bowel was small. We used a 28 mm stapler ultimately. Her ovaries were large and her uterus was still present. A preoperative exam suggested a rectocele. Colonoscopy Incomplete 10/27 COLON FINDINGS: There was a short 10mm long ulcerated stricture, with an inner diameter of 7mm, located 25 cm from the point of entry, which could not be traversed with adult or pediatric col onoscope. There was severely imflamed and ulcerated mucosa was seen proximal to stricture. The site of stricture was tattooed with 3 mL of Spot prior to completing procedure. A/P: Ms. Bertha Trinh is a 38 year old woman who presented with severe colitis with microperforation from foreign body POD#1 from open sigmoid colectomy. Reviewed outpatient colonoscopies, since patient carries a diagnosis of Crohn's, in the last couple of years that were negative for colitis or ileitis. No recent TI biopsies. I am not sure she has IBD as she has never required treatment including 5-ASA. Once she recovers from her surgery, I would recommend CT enterography to evaluate TI. If negative, then patient likely does not have IBD. # Colitis with colonic perforation: s/p sigmoidectomy; surgery following, defer recs # Foreign body: removed during surgery # Question Crohn's ileitis: no prior treatment; recommend outpatient CT enterography to evaluate TI in 6-8 weeks. If negative, then patient unlikely to have IBD No further GI needs. Will sign off. Please call with questions.
[2018-10-28] MEDS: MAXIPIME 1 GM in NS 50 ML IV SCH (10:44)
[2018-10-28] MEDS: D5 1/2 NS + KCL 20 MEQ 1,000 ML IV SCH ×2 (10:52→20:56)
--- NOTE | 2018-10-28 11:05 | PROGRESS NOTE ---
DATE: 10/28/2018 SUBJECTIVE: Ms. Bertha Trinh is a 38-year-old white female who is now postop day 1 from an open sigmoid colectomy with a an end descending colon to proximal rectum EEA stapled anastomosis. This morning, she is in bed. She still has a Rowland catheter tube in place. She states that she has some crampy abdominal pain. She says that she has had some flatus but no bowel movement. OBJECTIVE: Her heart rate is 72, blood pressure 152/81, O2 saturation 99%. She is afebrile. She is on IV antibiotics because of the of preop inflammation of her sigmoid colon. Her lower midline incision is dressed. Her abdomen is mostly soft. PLAN: We will change her IV fluids from lactated Ringer's to D5 and half with 20 of K at 80 mL an hour. We will keep her n.p.o. except for ice chips. We want to increase her activity. She has Tylenol, Toradol and IV morphine as needed for pain control. We will continue IV antibiotics for now. We will make sure that she is on Lovenox. cc: MD Cornell Araujo MD
[2018-10-28] MEDS: MORPHINE IV PRN ×3 (13:07→21:03)
[2018-10-28] MEDS: SODIUM CHLORIDE 0.9% INJ SCH (20:56)
[2018-10-28] MEDS: PROTONIX IV SCH (20:56)
--- NOTE | 2018-10-28 22:35 | PROGRESS NOTE ---
DATE: 10/28/2018 SUBJECTIVE: Patient complains of postop pain. No history of flatus. OBJECTIVE: Vital Signs: Low-grade fever, 99.4, pulse 92, blood pressure is stable. HEENT: Within normal limits. Neck: Supple. Chest: Clear. Heart: Sounds are regular. Abdomen: Belly is soft, nontender. Good bowel sounds. Neurological: No neurological deficits. LABS: SMA-7 is normal. ASSESSMENT AND PLAN: Postoperative day 2 sigmoid colectomy. PLAN: 1. Incentive spirometry, antithrombotic stockings, initiated deep venous thrombosis prophylaxis with Lovenox by Dr. Benz. 2. Change the IV fluids, D5 half-normal saline 80 mL/h and continue IV antibiotics, cefepime and Flagyl. 3. Gastrointestinal prophylaxis with Protonix. 4. Slowly out of the bed. Will check the labs and a CBC, SMA-7 in the morning. LEVEL OF DOCUMENTATION: 25 minutes. cc: Cornell Flaherty MD
[2018-10-29] MEDS: MAXIPIME 1 GM in NS 50 ML IV SCH ×3 (00:12→23:16)
[2018-10-29] MEDS: MORPHINE IV PRN ×4 (00:51→21:31)
[2018-10-29] MEDS: FLAGYL 500 MG/NS 500 MG/100 ML IVPB IV SCH ×4 (02:06→21:31)
[2018-10-29] MEDS: TORADOL IV SCH ×4 (02:49→21:33)
[2018-10-29 06:03] LABS: BASO# 0.03 X1000 (0.0-0.2); BASO% 0.3 % (0.0-0.8); EOS# 0.26 X1000 (0.0-0.7); EOS% 2.5 % (0.0-10.0); HEMATOCRIT 34.1 % (37.0-47.0); IMM GRAN# 0.04 X1000 (0.0-0.04); IMM GRAN% 0.4 % (0.0-0.5); LYMPH# 1.41 X1000 (1.2-3.4); LYMPH% 13.8 % (20.5-51.1); MCH 28.4 PG (27-31); MCHC 32.3 g/dL (33-37); MCV 87.9 FL (81-99); MONO# 0.57 X1000 (0.11-0.59); MONO% 5.6 % (1.7-9.3); MPV 8.6 FL (7.4-10.4); NEUT# 7.92 X1000 (1.4-6.5); NEUT% 77.4 % (42.2-75.2); PLT 444 X1000 (130-400); RBC 3.88 XMIL (4.2-5.4); RDW 13.6 % (11.5-14.5); WBC 10.23 X1000 (4.8-10.8)
[2018-10-29] MEDS: LOVENOX SUBQ SCH (06:24)
[2018-10-29 06:25] LABS: AGAP 9; BUN 5 mg/dL (8-22); CHLORIDE 107 mmol/L (98-107); COSMO 283; CREATININE 0.7 mg/dL (0.5-0.9); ESTIMATED GFR > 60; GLUCOSE 113 mg/dL (70-104); POTASSIUM 3.3 mmol/L (3.5-5.1); SODIUM 143 mmol/L (136-145); TCO2 27 mmol/L (25-35)
[2018-10-29] MEDS ORDERED: POTASSIUM CHLORIDE 20 MEQ/SWI 20 MEQ/100 ML IVPB IV SCH (08:00)
[2018-10-29] MEDS: PERIDEX MT SCH ×2 (08:51→21:31)
[2018-10-29] MEDS ORDERED: KLOR-CON PO ONE (09:29)
--- NOTE | 2018-10-29 12:18 | GASTROENTEROLOGY PROGRESS NOTE ---
DATE: 10/29/2018 Resting in bed. She is feeling better. She is passing blood as she is moving her bowels. She denies any nausea, vomiting, abdominal pain is improved. OBJECTIVE: Vital signs: Temp 98.2 degrees, respiratory rate 18, blood pressure 150/82, saturating 98% on room air. Body weight of 233 pounds, BMI of 40 kg/m2. General: Patient is obese, sitting in bed, in no acute distress. HEENT: Mild pallor. No icterus. Neck: Supple. Abdomen: Discomfort in the periumbilical region. She has a midline surgical dressing. No guarding or rebound. Extremities: No cyanosis, clubbing. Neuro: Otherwise she is alert, awake, oriented. LABS: Hemoglobin and hematocrit 11 and 34, white count of 10.23, platelet count of 444, sodium 140, potassium 3.3, chloride 107, bicarb 25, anion gap 9, BUN of 5, creatinine 0.7, glucose 113, calcium is 8. Blood culture x2, negative 5 days. Urine culture showing no growth. IMPRESSION AND PLAN: 1. Colitis/diverticulitis with colonic perforation secondary to foreign body. She is status post sigmoidectomy by Dr. Benz. She is being followed by Dr. Benz. We will follow up the final pathology result from surgical specimen. 2. Crohn's disease in the terminal ileum diagnosed 2016, which she has been in remission. Her last colonoscopy showed no evidence of any remaining ileitis or colitis. She has had a history of positive IBD panel. Initially in 2017, she had a negative IBD panel. On 04/09/2016, she had a colonoscopy showing evidence of terminal ileitis and colitis in descending colon and stool in the right colon. The pathology from that time from terminal ileum showed evidence of mild chronic inflammation and edema suggestive of Crohn's disease. No dysplasia was noted. Subsequent colonoscopies were negative for any remaining terminal ileitis or colitis. 3. Foreign body in the colon likely caused micro perforation. This was removed with a sigmoidectomy. 4. Due to the above Lovenox. 5. GI with PPIs. Continue on antibiotics and fluids and IV pain control per the primary care team. Will sign off at this time. The above plans discussed with the patient and all questions answered. Please call us with any further questions. Follow up in clinic in 6 after discharge. cc: MD Cornell Suárez MD
--- NOTE | 2018-10-29 14:50 | PROGRESS NOTE ---
DATE: 10/29/2018 SUBJECTIVE: Ms. Bertha Trinh is now postop day 2 from an open sigmoid colectomy for a foreign body perforation of the sigmoid colon. We performed an end-to-end EEA stapled anastomosis. This afternoon, she is in bed but she states clinically, she feels better than yesterday with less soreness. She has been placed on clear liquids per Dr. Flaherty. Her Rowland catheter tube has been discontinued and she has voided on her own. She is receiving Lovenox. OBJECTIVE: Her heart rate is 73, blood pressure 159/93, O2 saturation 95%. She is afebrile. She is on IV antibiotics because of inflammation and infection involving her sigmoid colon. Her white blood cell count is normal at 10, hematocrit is 34%. Electrolytes are within normal limits. PLAN: We will continue to increase her activity. We will leave her on clear liquids for today. She did receive some morphine this afternoon for pain. We will begin changing her IV medications to p.o. as she tolerates her clear liquids. cc: MD Cornell Araujo MD
[2018-10-29] MEDS: D5 1/2 NS + KCL 20 MEQ 1,000 ML IV SCH (17:51)
[2018-10-29] MEDS: PROTONIX IV SCH (21:33)
[2018-10-29] MEDS: SODIUM CHLORIDE 0.9% INJ SCH (21:33)
--- NOTE | 2018-10-29 21:40 | PROGRESS NOTE ---
DATE: 10/29/2018 SUBJECTIVE: The patient is passing gas. Decreased abdominal pain. OBJECTIVE: Temperature is 99 degrees. Vitals are stable.HEENT: Within normal limits. Neck: Supple. Chest: Clear. Cardiovascular: Heart sounds are regular. Gastrointestinal: Belly is soft. Decreased bowel sounds are present. No peripheral edema. INVESTIGATIONS: CBC: White cell count 10, hematocrit 34, platelets 424,000. SMA-7, potassium 3.3. ASSESSMENT AND PLAN: 1. Postoperative day 3, doing very well. 2. Out of the bed. 3. Replace the potassium. 4. Deep vein thrombosis prophylaxis with Lovenox. Continue cefepime and Flagyl, and advance the diet with clear liquids. Will follow up on pathology report. Apparently, there is conflicting report of questionable irritable bowel disease with Crohn's disease. We will defer that opinion with Dr. Arthur. Also, will follow up on the pathology report and the pathology report was pending. 5. History of procidentia. We will work once his condition is stable. LEVEL OF DOCUMENTATION: 25 minutes. cc: Cornell Flaherty MD
[2018-10-30] MEDS: MORPHINE IV PRN (04:21)
[2018-10-30] MEDS: TORADOL IV SCH ×2 (04:52→08:57)
[2018-10-30] MEDS: LOVENOX SUBQ SCH (05:51)
[2018-10-30] MEDS: FLAGYL 500 MG/NS 500 MG/100 ML IVPB IV SCH ×3 (05:51→21:36)
[2018-10-30] MEDS: D5 1/2 NS + KCL 20 MEQ 1,000 ML IV SCH ×3 (05:56→18:32)
[2018-10-30] MEDS: PERIDEX MT SCH ×2 (08:57→21:37)
[2018-10-30] MEDS: PROZAC PO SCH (09:31)
[2018-10-30] MEDS: MAXIPIME 1 GM in NS 50 ML IV SCH (12:33)
--- NOTE | 2018-10-30 12:54 | PROGRESS NOTE ---
DATE: 10/30/2018 Ms. Bertha Trinh is now postop day 3 from an open sigmoid colon resection. Her Rowland catheter tube has been removed. She has no NG tube. Her diet has been advanced to a GI soft diet today. Her lower midline incision is intact without evidence of infection. She states that she has had 2 loose bowel movements. She has been moving around some in the room. She is still taking some IV pain medication. Her heart rate is 74, blood pressure 172/89, O2 saturation 96%. She is afebrile. She has been on IV antibiotics because of intra-abdominal infection. She had no labs today. PLAN: We will change IV medications to p.o. medicines. We will continue to have her increase her activity and see how she tolerates her GI soft diet. cc: MD Cornell Araujo MD
[2018-10-30] MEDS: NORCO-10 PO PRN (19:29)
[2018-10-30] MEDS: ZOFRAN IV PRN (19:30)
--- NOTE | 2018-10-30 20:12 | PROGRESS NOTE ---
DATE: 10/30/2018 SUBJECTIVE: The patient is doing better, ambulating very well and has good bowel movements. REVIEW OF SYSTEMS: None reported. Waiting for pathology report. OBJECTIVE: On exam, temperature is 98 degrees, pulse is 74, blood pressure is stable. HEENT exam within normal limits. Neck is supple. No lymphadenopathy. Chest is clear to auscultation. Heart sounds are regular. Belly is soft, nontender. Good bowel sounds. No neurological deficits. LABORATORY DATA: Repeat blood cultures were negative. ASSESSMENT AND PLAN: 1. Status post sigmoid colectomy with ingested foreign body. Waiting for pathology report. 2. Advance diet. 3. Replace the potassium. 4. Slowly decrease intravenous fluids over the weekend. 5. Deep venous thrombosis and gastrointestinal prophylaxis as per order sheet. Currently on cefepime and Flagyl. Slowly discontinue intravenous cefepime. 6. Dr. Benz wants to keep her over the weekend and discharge her over the weekend or on Friday. Level of documentation 25 minutes. cc: Cornell Flaherty MD
[2018-10-31] MEDS: NORCO-10 PO PRN ×4 (01:17→19:32)
[2018-10-31] MEDS: FLAGYL 500 MG/NS 500 MG/100 ML IVPB IV SCH ×3 (06:11→21:00)
[2018-10-31] MEDS: LOVENOX SUBQ SCH (06:11)
[2018-10-31] MEDS: PERIDEX MT SCH ×2 (09:06→21:00)
[2018-10-31] MEDS: PROZAC PO SCH ×2 (09:06→09:07)
[2018-10-31] MEDS: D5 1/2 NS + KCL 20 MEQ 1,000 ML IV SCH ×2 (09:08→21:00)
[2018-10-31] MEDS: TYLENOL PO PRN ×3 (09:12→21:32)
--- NOTE | 2018-10-31 09:25 | GENERAL SURGERY PROGRESS NOTE ---
DATE: 10/31/2018 SUBJECTIVE: The patient reports worsening nausea overnight. She is having trouble eating and does not feel hungry. She has passed some gas and had bowel movements since surgery. She was up and walking in the halls yesterday. OBJECTIVE: She is afebrile. Vital signs are stable, although somewhat hypertensive with a systolic pressure in the 160s to 180s over the last 24 hours.General: She is awake, alert, oriented x4. No acute distress. CV: Regular rate and rhythm. Respiratory: No work of breathing. Gastrointestinal: Soft, nondistended, appropriately tender. She does have active bowel sounds. Her incision is clean, dry, and intact without erythema. LABORATORY: None today. IMAGING: None today. ASSESSMENT AND PLAN: A 38-year-old female postoperative day 4 open sigmoid colectomy for perforating foreign body. She is probably having some degree of ileus, although her bowel sounds are good and she has had some bowel function. Because of the nausea we will restart her IV fluids and back her down to a clear liquid diet. I have encouraged incentive spirometry and ambulation. cc: MD Cornell Jordan MD
--- NOTE | 2018-10-31 11:07 | PROGRESS NOTE ---
DATE: 10/31/2018 SUBJECTIVE: A 38-year-old, white female patient, admitted with abdominal pain, some fever and chills. Initial impression was diverticulitis not responding to outpatient treatment. Her CT scan done revealed a foreign body in the lower abdomen and inflammatory changes around the foreign body or perforated diverticulitis. Patient was treated conservatively with IV antibiotics, IV fluid. Patient had a GI consult done and a sigmoidoscopy done. Results reviewed. The patient underwent open sigmoid colectomy done. The patient is doing fair. She does have abdominal soreness. The patient is complaining of nausea and vomiting. Oral intake is poor. No high-grade fever or chills. The patient did pass flatus and she did have a bowel movement. The patient is ambulating in the hallway. No abdominal distention. Denied typical chest pain. Admission history and physical, GI and surgical consult noted. PAST MEDICAL HISTORY: Metabolic syndrome, depression and anxiety, hiatal hernia, diverticulosis, duodenal polyp. OBJECTIVE: Vital Signs: Blood pressure 171/85, pulse 82, respirations 16, temperature 98.8 degrees. Skin: No rash or petechiae. HEENT: Head atraumatic, normocephalic. [place] conjunctivae. Anicteric sclerae. Pupils reacting to light. Neck: Supple. No JVD, thyromegaly or lymphadenopathy. Chest: Bilateral good air entry present. Few basal crepitations. Cardiovascular: S1 and S2 heard. Abdomen: Soft, globular. Mild abdominal soreness. Bowel sounds present. Extremities: No cyanosis, clubbing. No acute DVT. Central nervous system: Alert, awake. Able to move all 4 limbs. LABORATORY DATA: Done on October 29 did revealed hypokalemia. Consideration diverticulitis. The patient had stricture in the sigmoid colon with inflammation. The patient underwent open sigmoid colectomy. Hypokalemia, hypertension, nausea. PLAN: Patient is getting DVT prophylaxis, IV antibiotics. I am going to give her some potassium supplement. Continue the rest of the treatment. We are going to check appropriate labs. Overall plan discussed with the patient and her and they are in agreement. cc: MD Cornell Abdullahi MD
[2018-10-31] MEDS: PRILOSEC PO SCH (15:26)
[2018-10-31] MEDS: KLOR-CON PO SCH (15:26)
[2018-10-31] MEDS: ZOFRAN IV PRN (18:34)
[2018-11-01] MEDS: NORCO-10 PO PRN ×4 (01:59→21:22)
[2018-11-01] MEDS: ZOFRAN IV PRN ×2 (02:02→08:37)
[2018-11-01] MEDS: D5 1/2 NS + KCL 20 MEQ 1,000 ML IV SCH ×2 (02:42→10:31)
[2018-11-01 05:54] LABS: BASO# 0.02 X1000 (0.0-0.2); BASO% 0.1 % (0.0-0.8); EOS# 0.25 X1000 (0.0-0.7); EOS% 1.6 % (0.0-10.0); HEMATOCRIT 37.8 % (37.0-47.0); HEMOGLOBIN 12.4 g/dL (12.0-16.0); IMM GRAN# 0.06 X1000 (0.0-0.04); IMM GRAN% 0.4 % (0.0-0.5); MCH 28.8 PG (27-31); MCHC 32.8 g/dL (33-37); MCV 87.9 FL (81-99); MONO# 0.93 X1000 (0.11-0.59); MONO% 5.8 % (1.7-9.3); MPV 8.7 FL (7.4-10.4); NEUT# 13.09 X1000 (1.4-6.5); NEUT% 82.1 % (42.2-75.2); PLT 425 X1000 (130-400); WBC 15.95 X1000 (4.8-10.8)
[2018-11-01] MEDS: LOVENOX SUBQ SCH (06:00)
[2018-11-01] MEDS: FLAGYL 500 MG/NS 500 MG/100 ML IVPB IV SCH ×3 (06:00→21:12)
[2018-11-01] MEDS: PRILOSEC PO SCH (06:00)
[2018-11-01 06:27] LABS: AGAP 11; ALB/GLOB RATIO 1.1; ALBUMIN 3.4 g/dL (3.5-5.0); ALKALINE PHOSPHATASE 116 U/L (32-104); BUN 6 mg/dL (8-22); CALCIUM 8.9 mg/dL (8.8-10.2); CHLORIDE 104 mmol/L (98-107); COSMO 275; CREATININE 0.5 mg/dL (0.5-0.9); ESTIMATED GFR > 60; GLUCOSE 122 mg/dL (70-104); GOT 36 U/L (10-30); GPT 56 U/L (10-36); MAGNESIUM 1.9 mg/dL (1.5-2.7); POTASSIUM 3.7 mmol/L (3.5-5.1); SODIUM 138 mmol/L (136-145); TCO2 23 mmol/L (25-35); TOTAL BILIRUBIN 0.79 mg/dL (0.20-1.00); TOTAL PROTEIN 6.6 g/dL (6.3-8.3)
[2018-11-01] MEDS ORDERED: PRILOSEC PO SCH (07:00)
[2018-11-01] MEDS ORDERED: APRESOLINE IV PRN (07:50)
--- NOTE | 2018-11-01 08:12 | GENERAL SURGERY PROGRESS NOTE ---
DATE: 11/01/2018 SUBJECTIVE: The patient feels better today, less nausea and pain. She is sitting up in the chair. She is tolerating clear liquids without vomiting. She is passing gas, and has had a bowel movement this morning. OBJECTIVE: Vital Signs: She is afebrile. Vital signs are stable. She is noted to have persistent hypertension with systolic pressures in the 170s to 180s over the last 24 hours. Urine output: She is voiding regularly. General: She is awake, alert, and oriented x4. No acute distress. She appears comfortable. CV: Regular rate and rhythm. Respiratory: Clear bilateral breath sounds. No rales. No wheeze. GI: Soft, minimally tender. A few bowel sounds heard. Not particularly distended. LABORATORY DATA: White blood cell count 15.9. Metabolic profile reviewed and notable for mild elevation in AST, ALT, and alkaline phosphatase. ASSESSMENT AND PLAN: A 38-year-old female, postoperative day 5, open sigmoidectomy for perforating foreign body. Overall, she seems to be generally improving. We will advance her to a full liquid diet today with Ensure. I have also started hydralazine as needed for hypertension. I would continue her Flagyl. Consider restarting cefepime, Levaquin, or an equivalent if she has any worsening leukocytosis or fevers. cc: MD Cornell Jordan MD
[2018-11-01] MEDS: KLOR-CON PO SCH (08:37)
[2018-11-01] MEDS: PERIDEX MT SCH ×2 (08:37→21:12)
[2018-11-01] MEDS: PROZAC PO SCH (08:38)
--- NOTE | 2018-11-01 09:28 | PROGRESS NOTE ---
DATE: 11/01/2018 SUBJECTIVE: Ms. Trinh is feeling fair. The patient still has some abdominal pain, nausea. No vomiting. No typical chest pain or palpitations. Denied any dysuria or hematuria. Oral intake is still poor. The patient is ambulating some. OBJECTIVE: Her vital signs noted. Blood pressure 159/97, pulse 80, respiration 18, temperature 98.9 degrees. Skin: Normal turgor. Neck: Supple. No JVD. Lungs: Bibasilar crepitations. Heart: S1 and S2 heard. Abdomen: Soft, globular. Bowel sounds present. Wound is looking good. Extremities: No cyanosis, clubbing. No acute DVT. DRILLING FIELD OPERATOR: Alert, awake. Able to move all 4 limbs. CBC did reveal leukocytosis. WBC count 15.95, platelet count 425,000. Patient had hypokalemia I supplemented potassium. Potassium today is 3.7. I did check her magnesium. It was 1.9. CONSIDERATION: 1. Status post sigmoid colectomy. 2. Hypokalemia, improved. 3. Hypertension. Patient was given as needed hydralazine. Patient's blood pressure is staying high. We are going to monitor patient closely. I think she will benefit from Norvasc. 4. Her other problems include leukocytosis, depression, gastritis, and reflux disease on Prilosec. PLAN: Overall plan discussed with the patient and she is in agreement. Her oral intake is still poor. We will continue current treatment. cc: MD Cornell Abdullahi MD
[2018-11-01] MEDS: TYLENOL PO PRN (13:55)
[2018-11-01] MEDS: NORVASC PO SCH (16:34)
[2018-11-02] MEDS: D5 1/2 NS + KCL 20 MEQ 1,000 ML IV SCH (01:55)
[2018-11-02] MEDS: NORCO-10 PO PRN ×2 (03:51→12:37)
[2018-11-02] MEDS: FLAGYL 500 MG/NS 500 MG/100 ML IVPB IV SCH ×2 (06:32→15:04)
[2018-11-02] MEDS: LOVENOX SUBQ SCH (06:33)
[2018-11-02] MEDS: PRILOSEC PO SCH (06:37)
[2018-11-02] MEDS ORDERED: DIFLUCAN PO ONE (08:32)
[2018-11-02] MEDS ORDERED: MONISTAT-DERM 2% CREAM TOP PRN (08:33)
--- NOTE | 2018-11-02 08:53 | PROGRESS NOTE ---
DATE: 11/02/2018 Ms. Bertha Trinh is postop day 7 from a low anterior colon resection. Over the weekend, she was nauseated, but today she says she feels much better. She is sitting in a chair. She is tolerating a full liquid diet. Her heart rate 79, blood pressure 137/76, and O2 saturation 98%. She has a low-grade fever of 99.2. Yesterday's white blood cell count was 16. Electrolytes were within normal limits. She really looks clinically well today. She is wanting to go home so we will advance her to a regular diet. She feels like she has a yeast infection. I will give her Diflucan. I will check on her this afternoon. cc: MD Cornell Araujo MD
[2018-11-02 09:34] LABS: AGAP 10; BUN 5 mg/dL (8-22); CALCIUM 8.9 mg/dL (8.8-10.2); CHLORIDE 104 mmol/L (98-107); COSMO 273; CREATININE 0.6 mg/dL (0.5-0.9); ESTIMATED GFR > 60; GLUCOSE 136 mg/dL (70-104); POTASSIUM 3.8 mmol/L (3.5-5.1); SODIUM 137 mmol/L (136-145); TCO2 23 mmol/L (25-35)
[2018-11-02 09:39] LABS: BASO# 0.05 X1000 (0.0-0.2); BASO% 0.3 % (0.0-0.8); EOS# 0.39 X1000 (0.0-0.7); EOS% 2.6 % (0.0-10.0); HEMATOCRIT 39.4 % (37.0-47.0); HEMOGLOBIN 12.6 g/dL (12.0-16.0); IMM GRAN# 0.07 X1000 (0.0-0.04); IMM GRAN% 0.5 % (0.0-0.5); LYMPH# 1.97 X1000 (1.2-3.4); LYMPH% 12.9 % (20.5-51.1); MCH 28.5 PG (27-31); MCV 89.1 FL (81-99); MONO# 0.56 X1000 (0.11-0.59); MONO% 3.7 % (1.7-9.3); MPV 8.9 FL (7.4-10.4); NEUT# 12.18 X1000 (1.4-6.5); PLT 450 X1000 (130-400); RBC 4.42 XMIL (4.2-5.4); RDW 14.4 % (11.5-14.5); WBC 15.22 X1000 (4.8-10.8)
[2018-11-02] MEDS: NORVASC PO SCH (11:43)
[2018-11-02] MEDS: PERIDEX MT SCH (11:43)
[2018-11-02] MEDS: KLOR-CON PO SCH (11:43)
[2018-11-02 13:07] LABS: SED RATE 50 mm/hr (0-20)
[2018-11-02 15:24] VITALS: BP 132/67
[2018-11-02] MEDS: PROZAC PO SCH (15:24)
--- NOTE | 2018-11-02 20:06 | DISCHARGE SUMMARY ---
ADMISSION DATE: 10/21/2018 DISCHARGE DATE: 11/02/2018 ADMITTING DIAGNOSIS: 1. Foreign body sigmoid colon. 2. Diverticulitis of sigmoid colon versus perforation with surrounding inflammation of sigmoid colon. DISCHARGE DISABILITIES: Full. DISCHARGE MEDICATIONS: She is to return to her home medications. DISCHARGE DIET: Regular. DISCHARGE DISPOSITION: She will return to see me next week in our outpatient office for wound check and removal of her skin clips. HOSPITAL COURSE: Ms. Bertha Trinh is a 38-year-old overweight white female who was admitted through our emergency department with lower abdominal pain. She is a patient of Dr. JESSICA Flaherty. We were asked to evaluate her because a CT scan of her abdomen and pelvis suggested inflammation around her sigmoid colon and a foreign body within the midsigmoid colon. She was admitted, received IV antibiotics and over the next several days clinically she improved. Gastroenterology was consulted and they felt that possibly she could pass this foreign body and she was given some laxatives. The IV antibiotics continued. A repeat CT scan on 10/26/2018 showed that the foreign body was still present as was some inflammation. She was still symptomatic and we felt she should go to the operating room for sigmoid colon resection. On 10/27/2018 she went to the operating room for open sigmoid colon resection. It appeared that her midsigmoid colon was inflamed. She did have a foreign body which we felt could be related a recent dental procedure in her sigmoid and the surrounding inflammation could be because of a small perforation involving this foreign body versus diverticulitis. The sigmoid colon was resected and she received an end descending colon to end proximal rectum EEA stapled anastomosis. We felt we could reanastomose her at the time of surgery because she had multiple days of IV antibiotics. We resected this inflamed area en bloc and there was no free intraabdominal purulence. Postoperatively we slowly introduce a diet to her. She had some problems with nausea but on postop day 7 her lower midline wound was healing without infection. She was tolerating a regular diet. She was ambulating in the halls and she was feeling good. Must be noted that she did have a white blood cell count of 15.6 the day prior to discharge but at discharge her heart rate was 89, blood pressure 132/67, she was afebrile. Her O2 saturation was 98%. We felt that it was safe to discharge her home under the care of her . We will not send her home on any more antibiotics. She is to return to her home medications and I will give her Y[place]e for pain. She knows to contact me with any problems such as fever, increasing abdominal distention or pain. cc: MD Cornell Araujo MD
--- NOTE | 2018-11-06 06:10 | DISCHARGE SUMMARY ---
ADMISSION DATE: 10/21/2018 DISCHARGE DATE: 11/02/2018 DISCHARGING DIAGNOSES: 1. Acute abdominal pain due to sigmoid diverticulitis with foreign body in the sigmoid colon. 2. Foreign body due to ingested dental molding. 3. Metabolic syndrome. 4. Diverticulosis. 5. Anxiety. 6. Hiatal hernia. 7. History of duodenal polyp was removed. 8. Tobacco abuse. 9. Procidentia. CONSULTANTS: 1. Dr. Benz. 2. Dr. Arthur. PROCEDURES: 1. Sigmoidoscopy failed to retrieve the foreign body due to a significant inflammation. 2. Exploratory laparotomy with sigmoid colon resection followed by end to end anastomosis. BRIEF HISTORY: Please see the H and P that was done on 10/21/2018. In brief, this is a 38-year- old white female who basically came in with abdominal pain. She was seen in the outpatient urgent care at the [facility]. She fails to improve and came to emergency room. In the ER, CT scan showed some ingested foreign body in the colon 4.5 cm. It does not appear to be metal and microperforation noted. HOSPITAL COURSE: Initially, she was given conservative management with IV antibiotics and pain control. Pain is slowly easing up. Dr. Arthur was consulted. Initial plan was we go to sigmoidoscopy to retrieve the foreign body, which we were unable to do so secondary to significant inflammation. As a result, Dr. Benz did open laparotomy followed by resection with end-to-end anastomosis. I discussed with Dr. Cool the findings were significant diverticulosis and diverticulitis with ingested foreign body from the dental molding. There is no evidence of Crohn's disease. During this hospital course, patient developed vaginal prolapse as per the nurses, and that issue will be addressed as an outpatient. The patient is tolerating very well. LABORATORY: White cell count 15.2, hematocrit 39, and platelets 450,000. Sodium 137, potassium 3.8, chloride 104, BUN 5, creatinine 0.6, and glucose 136. Blood cultures were negative. DISCHARGE INSTRUCTIONS: Follow up with Dr. Benz in 10 days as well as my office. Will be given a work excuse until 11/17. Continue on ciprofloxacin 500 p.o. b.i.d., Flagyl 500 p.o. b.i.d., Singulair 10 daily, Paxil 40 daily, trazodone 150 at bedtime, Prilosec 40 daily, and Ultracet as needed for pain, Also, we will address the procidentia as an outpatient. cc: MD Korin Lr MD Michael Kelso, MD Dr. Arora MTDD
== END 2018-11-02 17:03 | disposition home or self-care (01) | DRG 330 ==
LOC: ED 12:43 → 4N 12:44
PROVIDERS: ADMIT Internal Medicine; ATTEND Internal Medicine